=== PATIENT | female | born 1950 | race Caucasian/White ===

== ENCOUNTER 2016-06-05 18:44 | Emergency (ER) | payer MEDICARE, BC ==
[2016-06-05 19:02] VITALS: BP 136/76
[2016-06-05] MEDS ORDERED: Ciprofloxacin TAB* 500 MG PO ONE (19:20)
[2016-06-05] MEDS ORDERED: Phenazopyridine TAB* 100 MG PO ONE (19:21)
--- NOTE | 2016-06-05 19:52 | UC ---
Complaint Female HPI - HPI Summary HPI Summary: ONE WEEK OF FREQUNCY URGENCY AND PAIN WITH URINATION. WORSE SINCE MONDAY, WAS GOING TO WAIT TO SEE PCP, BUT COULD NOT WAIT ANY LONGER. BLOOD IN URINE SINCE MONDAY (3 DAYS AGO). NO FEVER. NO BACK PAIN. NO ABDOMINAL PAIN. - History Of Current Complaint Chief Complaint: UCGU Stated Complaint: FREQ URINATING,BLOOD Time Seen by Provider: 06/05/16 18:45 Hx Obtained From: Patient Onset/Duration: Gradual Onset, Lasting Days, Worse Since - THREE DAYS Timing: Lasting Days Severity Initially: Mild Severity Currently: Moderate Character: Dull, Burning Aggravating Factor(s): Urination Associated Signs And Symptoms: Negative: Fever, Back Pain, Nausea, Vomiting(# Of Episodes =) - Risk Factors Ectopic Risk Factor: Negative - Allergies/Home Medications Allergies/Adverse Reactions: Allergies Allergy/AdvReac Type Severity Reaction Status Date / Time Amoxicillin Allergy Unknown Verified 06/05/16 19:02 Reaction Details Ampicillin Allergy THRUSH, Verified 06/05/16 19:02 YEAST INFECTIONS Cephalexin [From Keflex] Allergy THRUSH, Verified 06/05/16 19:02 YEAST INFECTIONS BANDAIDS Allergy Severe Rash Uncoded 06/05/16 19:02 ENVIRONMENTAL/SEASONAL Allergy CONGESTION, Uncoded 06/05/16 19:02 SNEEZING PMH/Surg Hx/FS Hx/Imm Hx Previously Healthy: Yes Endocrine History Of: Reports: Thyroid Disease - HYPOTHYROIDISM Denies: Diabetes - She is on metformin for diabetes? weight gain?, Hyperthyroidism, Hypothyroidism, Dyslipidemia Cardiovascular History Of: Reports: Hypertension - CONTROL WITH MEDS Denies: Myocardial Infarction, Congestive Heart Failure Respiratory History Of: Reports: COPD - past smoker., Asthma - HX OF ASTHMA - NO INHALER, Bronchitis - HX OF GI/ History Of: Reports: Gastroesophageal Reflux Denies: Renal Disease Neurological History Of: Reports: Migraine - ONCE A WEEK Denies: Seizures Psychological History Of: Reports: Anxiety - CONTROL WITH MEDS, Bipolar Disorder Comment Only: Depression - BIPOLAR Cancer History Of: Denies: Lung Cancer, Colorectal Cancer, Breast Cancer, Prostate Cancer, Cervical Cancer - Surgical History Surgical History: Yes Surgery Procedure, Year, and Place: 2005 APPENDECTOMY, [facility] [place]. 2005 LAPAROSCOPIC CHOLECYSTECTOMY, [facility] [place]. 1974 D&C, WITH LAPAROSCOPIC TUBAL, [facility] [place]. 1966 LEFT BREAST TUMOR REMOVAL, [facility] [place]. CYSTOSCOPY, [facility] [place]. 2012 LEFT CATARACT EXTRACTION WITH IOL IMPLANT, [facility]. COLONOSCOPY X 2, [facility] - Family History Known Family History: Positive: Unknown Negative: Renal Disease Family History: multiple disease but she is unsure of what at this time - Social History Occupation: Retired Lives: With Family Alcohol Use: Rare Substance Use Type: None Smoking Status (MU): Former Smoker Type: Cigarettes Amount Used/How Often: 1 PPD Length of Time of Smoking/Using Tobacco: 30 YEARS ON AND OFF Have You Smoked in the Last Year: No When Did the Patient Quit Smoking/Using Tobacco: 02/20/2006 - Immunization History Most Recent Influenza Vaccination: 2009 Most Recent Tetanus Shot: does not know Most Recent Pneumonia Vaccination: 11/2009 Review of Systems Constitutional: Negative Skin: Negative Eyes: Negative ENT: Negative Respiratory: Negative Cardiovascular: Negative Gastrointestinal: Negative Genitourinary: Dysuria, Hematuria, Frequency, Urgency Motor: Negative Neurovascular: Negative Musculoskeletal: Negative Neurological: Negative Psychological: Negative All Other Systems Reviewed And Are Negative: Yes Physical Exam Triage Information Reviewed: Yes Appearance: Well-Appearing, No Pain Distress, Well-Nourished Vital Signs: Initial Vital Signs Temp 98.4 F 06/05/16 18:50 Pulse 71 06/05/16 18:50 Resp 18 06/05/16 18:50 BP 136/76 06/05/16 18:50 Pulse Ox 99 06/05/16 18:50 Vital Signs Reviewed: Yes Eye Exam: Normal ENT Exam: Normal ENT: Positive: Normal ENT inspection, Hearing grossly normal, Pharynx normal, TMs normal Dental Exam: Normal Neck exam: Normal Neck: Positive: Supple, Nontender Respiratory Exam: Normal Respiratory: Positive: Chest non-tender, Lungs clear, Normal breath sounds, No respiratory distress, No accessory muscle use Cardiovascular Exam: Normal Cardiovascular: Positive: RRR, No Murmur, Pulses Normal Abdominal Exam: Normal Abdomen Description: Positive: Nontender, No Organomegaly. Negative: CVA Tenderness (R), CVA Tenderness (L) Musculoskeletal Exam: Normal Neurological Exam: Normal Psychological Exam: Normal Skin Exam: Normal Complaint Female Dx - Differential Dx/Diagnosis Differential Diagnosis/HQI/PQRI: Cervicitis, Urinary Tract Infection Provider Diagnoses: URINARY TRACT INFECTION Discharge - Discharge Plan Condition: Stable Disposition: HOME Prescriptions: Ciprofloxacin HCl [Cipro 500 MG TAB] 500 mg PO BID #10 tab Phenazopyridine TAB* [Pyridium 100 mg TAB*] 100 mg PO TID PRN #15 tab PRN Reason: Pain Patient Education Materials: Urinary Tract Infection in Women (ED) Referrals: Kaylyn Silver MD [Primary Care Provider] -
== END 2016-06-05 19:37 | disposition home or self-care (01) ==
LOC: UCEAST 18:44
DX: N39.0 Urinary tract infection, site not specified (principal); R31.9 Hematuria, unspecified; E03.9 Hypothyroidism, unspecified; I10 Essential (primary) hypertension; J44.9 Chronic obstructive pulmonary disease, unspecified; K21.9 Gastro-esophageal reflux disease without esophagitis; G43.909 Migraine, unspecified, not intractable, without status migrainosus; Z88.1 Allergy status to other antibiotic agents; F41.9 Anxiety disorder, unspecified; Z87.891 Personal history of nicotine dependence
CPT/HCPCS: 81003; 87077; 87086; 87186; 99212; A9270-GY; G0463

== ENCOUNTER 2016-09-17 18:48 | Emergency (ER) | payer MEDICARE, BC ==
[2016-09-17 18:56] VITALS: BP 137/60
[2016-09-17] MEDS ORDERED: Sulfamethox/Trimethoprim DS 800/160* TAB PO ONE (19:22)
[2016-09-17] MEDS ORDERED: Phenazopyridine TAB* 100 MG PO ONE (19:25)
--- NOTE | 2016-09-17 19:45 | UC ---
Complaint Female HPI - HPI Summary HPI Summary: TWO DAYS OF FREQUENCY AND DISCOMFORT WITH URINATION. NO BACK PAIN. NO ABDOMINAL PAIN. - History Of Current Complaint Chief Complaint: UCGU Stated Complaint: POSS UTI,DISCHARGE Time Seen by Provider: 09/17/16 18:51 Hx Obtained From: Patient Onset/Duration: Gradual Onset, Lasting Days, Still Present Timing: Intermittent Severity Initially: Moderate Severity Currently: Moderate Pain Intensity: 7 Pain Scale Used: 0-10 Numeric Character: Dull Aggravating Factor(s): Urination Associated Signs And Symptoms: Negative: Fever, Back Pain, Vaginal Bleeding/ Discharge, Vaginal Discharge, Nausea, Vomiting(# Of Episodes =) - Risk Factors Ectopic Risk Factor: Negative Ovarian Torsion Risk Factor: Negative - Allergies/Home Medications Allergies/Adverse Reactions: Allergies Allergy/AdvReac Type Severity Reaction Status Date / Time Amoxicillin Allergy Unknown Verified 06/05/16 19:02 Reaction Details Ampicillin Allergy THRUSH, Verified 06/05/16 19:02 YEAST INFECTIONS Cephalexin [From Keflex] Allergy THRUSH, Verified 06/05/16 19:02 YEAST INFECTIONS BANDAIDS Allergy Severe Rash Uncoded 06/05/16 19:02 ENVIRONMENTAL/SEASONAL Allergy CONGESTION, Uncoded 06/05/16 19:02 SNEEZING Home Medications: Home Medications Cholecalciferol [Vitamin D] 1,000 unit PO 09/17/16 [History] [id number]-[id number]-Bj (Otic) [Antibiotic Ear] 1 umberto OT 09/17/16 [History] PMH/Surg Hx/FS Hx/Imm Hx Previously Healthy: Yes - Surgical History Surgical History: Yes Surgery Procedure, Year, and Place: [place] [facility] [place] LAPAROSCOPIC [place] [facility] [place]. 1973 D&C, WITH LAPAROSCOPIC [place]UBAL, [facility] [place] LEFT BREAST TUM[place] [facility] [place], [facility] [place]. 2012 LEFT CATARACT EXTRACTION WITH IOL IMPLANT, [facility] [place] 2[place] [facility] [place] - Family History Known Family History: Positive: Unknown Negative: Renal Disease Family History: multiple disease but she is unsure of what at this time - Social History Occupation: Retired Lives: With Family Alcohol Use: Rare Substance Use Type: None Smoking Status (MU): Former Smoker Type: Cigarettes Amount Used/How Often: 1 PPD Length of Time of Smoking/Using Tobacco: 30 YEARS ON AND OFF Have You Smoked in the Last Year: No When Did the Patient Quit Smoking/Using Tobacco: 02/20/2006 - Immunization History Most Recent Influenza Vaccination: 2009 Most Recent Tetanus Shot: does not know Most Recent Pneumonia Vaccination: 11/2009 Review of Systems Constitutional: Negative Skin: Negative Eyes: Negative ENT: Negative Respiratory: Negative Cardiovascular: Negative Gastrointestinal: Negative Genitourinary: Dysuria, Frequency, Urgency Neurovascular: Negative Musculoskeletal: Negative Neurological: Negative Psychological: Negative All Other Systems Reviewed And Are Negative: Yes Physical Exam Triage Information Reviewed: Yes Appearance: Well-Appearing, No Pain Distress, Well-Nourished Vital Signs: Initial Vital Signs Temp 97.5 F 09/17/16 18:50 Pulse 74 09/17/16 18:50 Resp 18 09/17/16 18:50 BP 137/60 09/17/16 18:50 Pulse Ox 100 09/17/16 18:50 Vital Signs Reviewed: Yes Eye Exam: Normal ENT Exam: Normal Dental Exam: Normal Neck exam: Normal Respiratory Exam: Normal Respiratory: Positive: Chest non-tender, Lungs clear, Normal breath sounds, No respiratory distress, No accessory muscle use Cardiovascular Exam: Normal Cardiovascular: Positive: RRR, No Murmur, Pulses Normal Abdominal Exam: Normal Abdomen Description: Positive: Nontender, No Organomegaly. Negative: CVA Tenderness (R), CVA Tenderness (L) Musculoskeletal Exam: Normal Musculoskeletal: Positive: Strength Intact, ROM Intact Neurological Exam: Normal Psychological Exam: Normal Skin Exam: Normal Complaint Female Dx - Differential Dx/Diagnosis Differential Diagnosis/HQI/PQRI: Ureteral Stone, Urinary Tract Infection Provider Diagnoses: URINARY TRACT INFECTION Discharge - Discharge Plan Condition: Stable Disposition: HOME Prescriptions: Fluconazole [Diflucan 150 MG (NF)] 150 mg PO ONCE #1 tab Phenazopyridine TAB* [Pyridium 100 mg TAB*] 100 mg PO TID PRN #12 tab PRN Reason: Pain Sulfamethox/Trimethoprim DS* [Bactrim DS 800/160 TAB*] 1 tab PO BID #10 tab Patient Education Materials: Urinary Tract Infection in Women (ED) Referrals: Kaylyn Silver MD [Primary Care Provider] -
== END 2016-09-17 19:39 | disposition home or self-care (01) ==
LOC: UCEAST 18:48
DX: N39.0 Urinary tract infection, site not specified (principal); Z87.891 Personal history of nicotine dependence
CPT/HCPCS: 81003; 87077; 87086; 87186; 99212; A9270-GY; G0463

== ENCOUNTER 2017-01-04 13:19 | Emergency (ER) | payer MEDICARE, BC ==
[2017-01-04 14:32] LABS: Hematocrit 40 % (35-47); Hemoglobin 13.2 g/dl (12.0-16.0); Mean Corpuscular HGB Conc 34 g/dl (31-36); Mean Corpuscular Hemoglobin 31 pg (27-31); Mean Corpuscular Volume 93 fL (80-97); Mean Platelet Volume 7 um3 (7.4-10.4); Red Blood Count 4.24 10^6/ul (4.0-5.4); Red Cell Distribution Width 15 % (10.5-15); White Blood Count 7.3 10^3/ul (3.5-10.8)
[2017-01-04 14:37] LABS: Add Diff/Slide Review? Slide Review Added; Comments Flag Yes
--- NOTE | 2017-01-04 14:39 | RAD ---
HISTORY: Syncope, ataxia COMPARISONS: MRI of the brain dated April 02, 2009 TECHNIQUE: Multiple contiguous axial CT scans were obtained of the head without intravenous contrast. FINDINGS: HEMORRHAGE/INFARCT: There is no hemorrhage or acute infarct. MASSES/SHIFT: There is no mass or shift. EXTRA-AXIAL SPACES: There are no extra-axial fluid collections. SULCI AND VENTRICLES: The sulci and ventricles are normal in size and position for the patient's stated age. CEREBRUM: There are no focal parenchymal abnormalities. BRAINSTEM: There are no focal parenchymal abnormalities. CEREBELLUM: There are no focal parenchymal abnormalities. VESSELS: The vessels are grossly normal. PARANASAL SINUSES: The paranasal sinuses are clear. ORBITS: The orbits are unremarkable. BONES AND SOFT TISSUE: No bone or soft tissue abnormalities are noted. OTHER: None IMPRESSION: NO ACUTE INTRACRANIAL PATHOLOGY.
[2017-01-04 14:48] LABS: ALT 7 U/L (7-52); AST 16 U/L (13-39); Albumin 4.3 g/dL (3.2-5.2); Alkaline Phosphatase 59 U/L (34-104); Anion Gap 10 mmol/L (2-11); BUN/Creatinine Ratio 20.2 (8-20); Blood Urea Nitrogen 18 mg/dL (6-24); CO2 Carbon Dioxide 27 mmol/L (22-32); Calcium 9.5 mg/dL (8.6-10.3); Chloride 95 mmol/L (101-111); EGFR African American 81.1 (>60); EGFR Non-African American 63.1 (>60); Globulin 2.6 g/dL (2-4); Glucose 78 mg/dL (70-100); Potassium 3.7 mmol/L (3.5-5.0); Sodium 132 mmol/L (133-145); Total Protein 6.9 g/dL (6.4-8.9)
[2017-01-04 15:04] LABS: Acetaminophen < 15 mcg/mL; Alcohol < 10 mg/dL (<10); Salicylate < 2.50 mg/dL (<30)
--- NOTE | 2017-01-04 15:06 | RAD ---
INDICATION: Chest pain. COMPARISON: Comparison is made with a prior chest x-ray study from September 23, 2013. TECHNIQUE: Dual-energy PA and lateral views of the chest were obtained. FINDINGS: The heart is within normal limits in size. Mediastinal and hilar contours appear within normal limits. The lungs are underinflated and clear. No pleural effusion or pneumothorax is seen. IMPRESSION: NO EVIDENCE FOR ACTIVE CARDIOPULMONARY DISEASE.
[2017-01-04 15:18] LABS: TSH (Thyroid Stimulating Horm) 0.26 mcIU/mL (0.34-5.60)
--- NOTE | 2017-01-04 16:54 | RAD ---
Indication: Dizziness. Difficulty speaking. Suggestion of visual hallucinations. Comparison: January 04, 2017 CT. April 02, 2009 MRI Technique: Pin digital Fidelity 1.5 Annalisa [id number] with GEM suite. MRI brain without contrast. Report: Diffusion series is negative for acute or subacute ischemia. Susceptibility series is negative for stigmata of hemosiderin deposition to indicate previous hemorrhage. 3 mm chronic lacunar infarct noted at the LEFT superior cerebellar hemisphere. Small burden of small T2 FLAIR hyperintensities within the periventricular and subcortical white matter of the cerebral hemispheres. No intra or extra-axial fluid collection or mass effect. Preserved major intracranial flow-voids. Unremarkable orbital contents. No suspicious calvarial or skull base lesion evident. Clear paranasal sinuses and mastoid air spaces. Unremarkable scalp. IMPRESSION: 1. Stigmata of mild chronic small vessel ischemic disease. Chronic 3 mm lacunar infarct at the LEFT cerebellum unchanged from the 2010 exam. 2. No acute intracranial process evident.
[2017-01-04 17:58] LABS: Urine Bacteria Absent (Absent); Urine Bilirubin Negative (Negative); Urine Glucose Negative (Negative); Urine Nitrite Negative (Negative)
[2017-01-04 18:10] LABS: Benzodiazepine Urine Screen None Detected (None Detect)
--- NOTE | 2017-01-04 21:47 | ED ---
Taylor Armendariz Nilda, scribed for Haile Michelle MD on 01/04/17 at 1405 . Neurological HPI - HPI Summary HPI Summary: This patient is a 66 year old F BIBA to [facility] accompanied by sister with a chief complaint of constant unsteadiness since this morning. Last night, patient experienced dizziness and seeing bugs crawling on her legs. Symptoms aggravated and alleviated by nothing. Patient reports word finding (past week), tremors in bilat UE, and hand pain. Patient denies unilateral weakness. For the past few months, patient has been on Amitriptyline for insomnia, and recently increased dosage a couple weeks ago. She is also on Depakote for bipolar disorder. - History of Current Complaint Chief Complaint: EDDizziness Stated Complaint: WEAKNESS Time Seen by Provider: 01/04/17 13:41 Hx Obtained From: Patient Onset/Duration: Sudden Onset, Started days ago, Still Present Timing: Constant Current Severity: Moderate Neurological Deficit Location: Generalized Pain Intensity: 0 Pain Scale Used: 0-10 Numeric Character: Other: - unsteady Aggravating: Nothing Alleviating: Nothing Associated Signs and Symptoms: Positive: Nothing - dizziness and seeing bugs crawling on her legs, word finding (past week), tremors in bilat UE, and hand pain. Patient denies unilateral weakness. - Allergy/Home Medications Allergies/Adverse Reactions: Allergies Allergy/AdvReac Type Severity Reaction Status Date / Time Amoxicillin Allergy Unknown Verified 06/05/16 19:02 Reaction Details Ampicillin Allergy THRUSH, Verified 06/05/16 19:02 YEAST INFECTIONS Cephalexin [From Keflex] Allergy THRUSH, Verified 06/05/16 19:02 YEAST INFECTIONS BANDAIDS Allergy Severe Rash Uncoded 06/05/16 19:02 ENVIRONMENTAL/SEASONAL Allergy CONGESTION, Uncoded 06/05/16 19:02 SNEEZING Home Medications: Home Medications Acyclovir OINT 5%(NF) [Zovirax Oint 5%(NF)] 1 applic TOPICAL QID 01/04/17 [ History Confirmed 01/04/17] Amitriptyline TAB* [Elavil TAB*] 20 mg PO BEDTIME 01/04/17 [History Confirmed ] Carbidopa/Levodop 25/100 MG(*) [Sinemet 25/100 TAB(*)] 1.5 tab PO QAM 01/04/17 [ History Confirmed 01/04/17] Carbidopa/Levodop 25/100 MG(*) [Sinemet 25/100 TAB(*)] 2 tab PO BID 01/04/17 [ History Confirmed 01/04/17] Clotrimazole/Betamethasone* [Lotrisone Cream*] 1 applic TOPICAL BID 01/04/17 [ History Confirmed 01/04/17] Esomeprazole(NF) [NexIUM(NF)] 40 mg PO DAILY 01/04/17 [History Confirmed ] Estradiol VAGINAL TAB(NF) [Vagifem] 10 mcg VAGINAL .THREE TIMES WEEKLY PRN 01/04 [History Confirmed 01/04/17] Lamotrigine XR (NF) [Lamictal XR (NF)] 100 mg PO DAILY 01/04/17 [History Confirmed 01/04/17] Levothyroxine TAB* [Synthroid TAB*] 137 mcg PO DAILY 01/04/17 [History Confirmed 01/04/17] Melatonin (NF) 5 tab PO BEDTIME 01/04/17 [History Confirmed 01/04/17] Metformin ER (NF) 500 mg PO BID 01/04/17 [History Confirmed 01/04/17] Metoprolol Succinate XL TAB* [Toprol XL TAB*] 50 mg PO BID 01/04/17 [History Confirmed 01/04/17] Nicotine GUM* 4 mg PO Q2H PRN 01/04/17 [History Confirmed 01/04/17] Psyllium [Metamucil] 1,050 mg PO BEDTIME 01/04/17 [History Confirmed 01/04/17] ValACYclovir (*) [Valtrex 500 mg (*)] 500 mg PO DAILY PRN 01/04/17 [History Confirmed 01/04/17] Verapamil PM(NF) [Verelan PM(NF)] 200 mg PO DAILY 01/04/17 [History Confirmed ] PMH/Surg Hx/FS Hx/Imm Hx Endocrine/Hematology History: Reports: Hx Thyroid Disease - HYPOTHYROIDISM Denies: Hx Diabetes - She is on metformin for diabetes? weight gain? Cardiovascular History: Reports: Hx Angina, Hx Hypertension - CONTROL WITH MEDS , Other Cardiovascular Problems/Disorders - SEES [facility], BUT NOT ON REGULAR BASIS Denies: Hx Congestive Heart Failure, Hx Coronary Artery Disease, Hx Hypercholesterolemia, Hx Myocardial Infarction, Hx Valvular Heart Disease Respiratory History: Reports: Hx Asthma - HX OF ASTHMA - NO INHALER, Hx Chronic Obstructive Pulmonary Disease (COPD) - past smoker., Other Respiratory Problems/ Disorders - COPD Denies: Hx Lung Cancer GI History: Reports: Hx Gastroesophageal Reflux Disease - CONTROL WITH MEDS, Other GI Disorders - TAKING METFORMIN DUE TO THE DEPAKOTE AND WEIGHT GAIN History: Reports: Other Problems/Disorders - spastic bladder Denies: Hx Renal Disease Musculoskeletal History: Reports: Hx Arthritis, Hx Osteoporosis, Hx Tendonitis - CHRONIC IN MARA HANDS Sensory History: Reports: Hx Cataracts, Hx Contacts or Glasses - GLASSES, Hx Vision Problem - bifocals Denies: Hx Hearing Aid Opthamlomology History: Reports: Hx Cataracts, Hx Contacts or Glasses - GLASSES , Hx Vision Problem - bifocals Neurological History: Reports: Hx Migraine - ONCE A WEEK, Hx Nerve Disease - PARKINSON DISEASE, Other Neuro Impairments/Disorders - HX OF DIZZINESS R/T MEDICATIONS Denies: Hx Seizures Psychiatric History: Reports: Hx Anxiety - CONTROL WITH MEDS, Hx Post Traumatic Stress Disorder, Hx Bipolar Disorder Comment Only: Hx Depression - BIPOLAR - Cancer History Hx Chemotherapy: No Hx Radiation Therapy: No - Surgical History Surgery Procedure, Year, and Place: 2005 [place]OMY, [facility] [place]. 2004 LAPAROSCOPIC CHOLECYSTECTOMY, [facility] [place]. 1973 D&C, WITH LAPAROSCOPIC TUBAL, [facility] [place]. 1966 LEFT BREAST TUMOR REMOVAL, [facility] [place]. [place]STOSCOPY, [facility] [place]. 2012 LEFT CATARACT EXTRACTION WITH IOL IMPLANT, [facility] [place]. COLONOSCOPY X 2, [facility] [place] Hx Anesthesia Reactions: No Infectious Disease History: No Infectious Disease History: Denies: Hx Clostridium Difficile, Hx Hepatitis, Hx Human Immunodeficiency Virus (HIV), Hx of Known/Suspected MRSA, Hx Shingles, Hx Tuberculosis, Hx Known/ Suspected VRE, History Other Infectious Disease, Traveled Outside the [place] in Last 30 Days - Family History Known Family History: Positive: Cardiac Disease, Diabetes, Blood Disorder Negative: Renal Disease Family History: multiple disease but she is unsure of what at this time - Social History Occupation: Retired Lives: At [facility] Alcohol Use: Rare Substance Use Type: Reports: None Smoking Status (MU): Former Smoker Type: Cigarettes Amount Used/How Often: 1 PPD Length of Time of Smoking/Using Tobacco: 30 YEARS ON AND OFF Have You Smoked in the Last Year: No Review of Systems Positive: Other - tremors in bilat UE, hand pain Neurological: Other - unsteadiness, word finding, seeing bugs crawling on legs, dizziness; negative unilateral weakness All Other Systems Reviewed And Are Negative: Yes Physical Exam Triage Information Reviewed: Yes Vital Signs On Initial Exam: Initial Vitals Temp Pulse Resp BP Pulse Ox 97.9 F 83 14 133/71 97 01/04/17 13:26 01/04/17 13:26 01/04/17 13:26 01/04/17 13:26 01/04/17 13:26 Vital Signs Reviewed: Yes Appearance: Positive: Well-Appearing, No Pain Distress Skin: Positive: Skin Color Reflects Adequate Perfusion Head/Face: Positive: Normal Head/Face Inspection Eyes: Positive: EOMI ENT: Positive: Normal ENT inspection Neck: Positive: Nontender Respiratory/Lung Sounds: Positive: Clear to Auscultation, Breath Sounds Present Cardiovascular: Positive: RRR. Negative: Murmur Abdomen Description: Positive: Nontender Musculoskeletal: Positive: Strength/ROM Intact Neurological: Positive: Sensory/Motor Intact, Alert, Oriented to Person Place, Time, CN Intact II-III Psychiatric: Positive: Normal - [place] Coma Scale Best Eye Response: 4 - Spontaneous Best Motor Response: 6 - Obeys Commands Best Verbal Response: 5 - Oriented Coma Scale Total: 15 Diagnostics - Vital Signs Vital Signs Temp Pulse Resp BP Pulse Ox 01/04/17 13:26 97.9 F 83 14 133/71 97 - Laboratory Result Diagrams: 01/04/17 14:15 01/04/17 14:15 Lab Statement: Any lab studies that have been ordered have been reviewed, and results considered in the medical decision making process. - Radiology CXR Radiology Interpretation Completed By: Radiologist - CXR reveals no evidence for active cardiopulmonary disease. ED physician has reviewed this radiology report and agrees. Brain MRI Radiology Interpretation Completed By: Radiologist - 1. Stigmata of mild chronic small vessel ischemic disease. Chronic 3 mm lacunar infarct at the LEFT cerebellum unchanged from the 2010 exam. 2. No acute intracranial process evident. ED physcician has reviewed this report and agrees. - CT Brain CT Interpretation Completed By: Radiologist - CT Brain reveals no acute intracranial pathology. ED physician has reviewed this radiology report and agrees. - EKG 1351 Cardiac Rate: NL EKG Rhythm: Sinus Rhythm - 77 bpm EKG Interpretation: nl [place] and QRS EKG Comparison: No Significant Change Re-Evaluation - Re-Evaluation First Eval Re-Evaluation Time: 18:18 Change: Improved Comment: The patient walked to the bathroom and back to her room, about 100 feet with a steady gait, and not being off balance. Course/Dx - Course Assessment/Plan: This patient is a 66 year old F BIBA to [facility] accompanied by sister with a chief complaint of constant unsteadiness since this morning. Last night, patient experienced dizziness and seeing bugs crawling on her legs. Symptoms aggravated and alleviated by nothing. Patient reports word finding ( past week), tremors in bilat UE, and hand pain. Patient denies unilateral weakness. For the past few months, patient has been on Amitriptyline for insomnia, and recently increased dosage a couple weeks ago. She is also on Depakote for bipolar disorder. Pending EKG, CXR, CT Brain, and labs. EKG reveals NSR, 77 bpm, nl [place] and QRS, no acute changes. CXR, per radiologist, reveals NAD. CT Brain, per radiologist, reveals no acute intracranial pathology. ED physician has reviewed these radiology reports and agrees. Pending MRI brain, UA, and drug screen. Brain MRI, per radiology, reveals 1. Stigmata of mild chronic small vessel ischemic disease. Chronic 3 mm lacunar infarct at. the LEFT cerebellum unchanged from the 2010 exam. 2. No acute intracranial process evident. The patient is ambulatory with normal gait here in the ER, she has no orthostatic changes on vitals, she has a normal MRI. Mental health to see for further eval. - Diagnoses Provider Diagnoses: Psychosis, Dizziness Discharge - Discharge Plan Condition: Good Disposition: OTHER Discharge Disposition Comment: sign out to Dr Willett at 2200 awaiting [facility] and dispo Referrals: Kaylyn Silver MD [Primary Care Provider] - The documentation as recorded by the Taylor morrow Nilda accurately reflects the service I personally performed and the decisions made by me, Haile Michelle MD.
[2017-01-05 02:40] VITALS: BP 80/59
--- NOTE | 2017-01-05 14:22 | ED ---
Kieran Armendariz Alfonso, scribed for Judy Willett MD on 01/05/17 at 0242 . Progress - Progress Note Progress Note: This patient was signed out from Dr. Michelle after extensive evaluation for dizziness including brain MRI that was unremarkable, pending disposition, awaiting [facility]. The patients condition is deemed, per Dr. Eubanks (psychiatrist, per Kameron, psychiatric appetizer packer), stable and she will be discharged to home with Dx of bipolar disorder, dizziness. - Consult/PCP Time Called: 23:53 Re-Evaluation - Re-Evaluation First Eval Re-Evaluation Time: 18:18 Change: Improved Comment: The patient walked to the bathroom and back to her room, about 100 feet with a steady gait, and not being off balance. Course/Dx - Diagnoses Provider Diagnoses: Bipolar disorder The documentation as recorded by the Kieran morrow Alfonso accurately reflects the service I personally performed and the decisions made by , Judy Willett MD.
== END 2017-01-05 03:13 | disposition home or self-care (01) ==
LOC: ED 13:19
DX: F29 Unspecified psychosis not due to a substance or known physiological condition (principal); F31.9 Bipolar disorder, unspecified; R42 Dizziness and giddiness
CPT/HCPCS: 36415; 70450; 70551; 71020; 80053; 80164; 80307; 80320; 80329; 81003; 81015; 84443; 84484; 85025; 87086; 93005; 99285; G0480

== ENCOUNTER 2017-07-14 18:21 | Emergency (ER) | payer MEDICARE, BC ==
--- OUTSIDE RECORDS SUMMARY | 2017-07-14 18:59 | XMS REPORT ---
:1950 External Reference #:[id number] Author Organization [facility] Address [address] [address] Phone [phone] Care Team Providers Name Role Phone Kaylyn Shannon MD Primary Care Physician Unavailable Payers Type Date Identification Numbers Payment Provider Subscriber Medicare Primary Effective: Policy Number: Medicare Leslie Ignacio 2013 [id number] PayID: [id number] [address] [place] [address] Med[employer] Part B Effective: 2012 Policy Number: BS Facets Leslie Ignacio [id number] PayID: [id number] [address] [address] [place] [address] Problems Date Description Provider Status Onset: 09/23/2014 Parkinson's disease Janice Kinney M.D. Active Onset: 09/23/2014 Moderate depression Janice Kinney M.D. Active Onset: 09/23/2014 Essential tremor Janice Kinney M.D. Active Onset: 03/12/2015 Daytime somnolence Janice Kinney M.D. Active Onset: 03/09/2016 Dizziness Janice Kinney M.D. Active Onset: 10/20/2016 Insomnia Janice Kinney M.D. Active Onset: 10/20/2016 Joint pain Janice Kinney M.D. Active Onset: 07/07/2017 REM sleep behavior disorder Kelvin Flores M.D. Active Onset: 07/07/2017 Major depressive disorder, single Kelvin Flores M.D. Active episode, unspecified Onset: 07/07/2017 Dysphagia Kelvin Flores M.D. Active Onset: 07/07/2017 Abnormal gait Kelvin Flores M.D. Active Social History Type Date Description Comments ETOH Use Rarely consumes alcohol Smoking Patient is a former smoker quit early 1 ppd on/off for 30 yrs Allergies, Adverse Reactions, Alerts Date Description Reaction Status Severity Comments 08/24/2012 NKDA active Medications Medication Date Status Form Strength Qnty SIG Indications Ordering Provider Vitamin D-3 10/20 Active Capsules 1000Unit 1 by mouth . every day Leonor Kinney Primidone 03/26 Active Tablets 50mg 270ta Take Three bs Tablets By Gregoria, Mouth Every M.D. Night as Directed Carbidopa-Levodopa 10/29 Active Tablets 25-100mg 585ta take 12/04. bs tab in in Gregoria the M.D. morning, 2.tabs at lunch, 2 tabs at dinner. Nexium Active Capsules 40mg 30cap 1 po qd / DR s Metoprolol Active Tablets 25mg 360ta 2 po bid Janice M. Succinate ER / ER 24HR bs Leonor Kinney Hydrochlorothiazid Active Capsules 12.5mg 90cap 1 po qd Unknown s Verapamil HCL ER Active Caps ER 200mg 90cap 1 po qd 24HR s Levoxyl Active Tablets 137mcg 90tab 1 po qd s Ibuprofen Active Tablets 600mg 120ta 1 po q4h Unknown / bs prn alternating with Tylenol Depakote ER Active Tablets 500mg 60tab 2 tabs qpm / ER 24HR s Imitrex Active Solution 20mg/Act 2 sprays in 24 hours as needed for migraine Nicotine Mini Active Lozenges 4mg 5 PO qd Restasis Active Emulsion 0.05% 1 drop in / each eye bid Valtrex Active Tablets 500mg 1 by mouth every day Zovirax Active Ointment 5% apply to Unknown /0000 lesions qid Oxybutynin 00 Active Tablets 15mg 1 by mouth Unknown Chloride ER /0000 ER 24HR every day Potassium Chloride Active Tablets 10Meq Take two Unknown ER /0000 ER One By Mouth Twice A Day Multivitamin Adult Active Tablets 1 by mouth Unknown /0000 every day Lamictal Active Tablets 25mg 3 tabs by Unknown /0000 mouth at night Eucerin Eczema Active Cream 1% apply to Unknown Relief /0000 affected areas as needed Lactaid 10/20 Hx Tablets 3000Unit 90tab 1-2 tab w/ s dairy as Gregoria, - needed M.D. 07/06 Parcopa 10/20 Hx Tablets 25-100mg 90tab 1 tab G20 Dispers s sublingual Gregoria, - first thing M.D. 02/08 morning Amitriptyline HCL 10/20 Hx Tablets 10mg 180ta take G47.00 bs one-two Gregoria, - tablets by M.D. 02/08 mouth at bedtime as directed. Parcopa 09/23 Hx Tablets 25-100mg 90tab 1po qam G20 Dispers s Gregoria - M.D. 07/28 Parcopa 04/17 Hx Tablets 25-100mg 90tab 1 tab by 332.0 Dispers s mouth every Gregoria, - in the M.D. 09/23 Metamucil 03/26 Hx Capsules 0.52gm 1 po daily Vish Kinney M.DColby 03/23 Senna 03/26 Hx Capsules 8.6mg 60cap 1-2 tabs po s prn Vish Kinney M.DColby 07/28 Klor-Con 10 00 Hx Tablets 10Meq 30tab 3 tabs po Unknown /0000 ER s alternating - with 2 tabs / po q Oxybutynin Hx Tablets 10mg 30tab 1 po qd Unknown Chloride ER /0000 ER 24HR s - 03/09 Metformin HCL ER Hx Tablets 500mg 30tab 1 PO bid Unknown /0000 ER 24HR s - 06/15 Imitrex Hx Tablets 25mg 18tab 1 po prn. Unknown /0000 s June repeat - x1 in 24h 07/28 Vicodin Hx Tablets 5-500mg 53tab 1 tab po q Unknown /0000 s 4h prn - 03/08 Carbidopa/Levodopa Hx Tablets 25-100mg 540ta 1- 1 1/2 Janice M. /0000 bs tabs by Stackman, - mouth 4 M.D. 10/29 times a day /2013 as directed Lamictal Hx Tablets 25mg 120ta 3 tabs po Unknown /0000 bs qpm - 03/09 Depakote ER Hx Tablets 250mg 1 tab po Unknown /0000 ER 24HR qpm - 07/28 Ambien Hx Tablets 5mg 10tab 1-2 tabs po Unknown /0000 s qhs prn - 03/08 Ativan Hx Tablets 0.5mg 20tab 1 po qd prn Unknown /0000 s - 03/08 Colace Hx Capsules 100mg 60cap 2 PO qd Unknown /0000 s - 03/08 Metamucil Hx Powder 28.3% 1Can 2 tsp to Unknown /0000 2tbs by - mouth daily 03/26 prn Miralax Hx Packet [id number] 1Mon 17 gm qd Unknown /0000 prn - 03/26 Pepcid ac Hx Tablets 10mg 60tab 1 po daily Unknown /0000 s prn - 07/28 Multivitamins Hx Tablets 90tab 1 po qd Unknown /0000 s - 09/22 Premarin Hx Cream 0.625mg/G 60gm use1 Unknown /0000 M applicator - intavaginal 10/04 2x per week /2013 Melatonin Maximum Hx Tablets 5mg 1 tab po Unknown Strength /0000 qhs - 09/22 Probiotic Hx Capsules 14cap 5 po qd Unknown /0000 s - 03/08 Vitamin E Hx Capsules 400Unit 30cap 4 po qd Unknown /0000 s - 09/22 Metamucil 00 Hx Capsules 0.52gm 2 capsules Unknown /0000 PO QHS - 07/06 Vagifem Hx Tablets 10mcg by way of Unknown /0000 vagina - three times 06/15 a week week (with applicator) Acyclovir Hx Tablets 400mg 1 by mouth Unknown /0000 daily - 07/28 Sulfamethoxazole-T Hx Tablets 400-80mg one tab po Unknown rimethoprim /0000 bid prn - 07/28 Clotrimazole Hx Cream 1% apply to Unknown /0000 affected - area bid 03/08 Bactrim Hx Tablets 400-80mg 1 tab by Unknown /0000 mouth once - a day 03/08 Multivitamins Hx Capsules 1 by mouth Unknown /0000 every day - 06/15 Klor-Con M10 Hx Tablets 10Meq 1 PO bid Unknown /0000 ER - 06/15 Lamictal Hx Tablets 100mg 1 by mouth Unknown /0000 po at hs - 07/07 Cholestyramine Hx Packet 4gm as needed Unknown /0000 - 07/06 Metformin HCL ER Hx Tablets 500mg Take One Unknown /0000 ER 24HR Tablet By - Mouth in 07/06 the morning /2017 and 2 at night. Vital Signs Date Vital Result Comment 07/07/2017 Height 62 inches 5'2" Weight 150.00 lb Heart Rate 72 /min BP Systolic Sitting 140 mmHg BP Diastolic Sitting 86 mmHg Respiratory Rate 16 /min BMI (Body Mass Index) 27.4 kg/m2 02/09/2017 Height 62 inches 5'2" Weight 145.00 lb Heart Rate 74 /min BP Systolic 132 mmHg BP Diastolic 76 mmHg Respiratory Rate 14 /min BMI (Body Mass Index) 26.5 kg/m2 10/20/2016 Height 62 inches 5'2" Weight 140.00 lb Heart Rate 68 /min BP Systolic Sitting 130 mmHg BP Diastolic Sitting 86 mmHg Respiratory Rate 16 /min BMI (Body Mass Index) 25.6 kg/m2 06/16/2016 Height 62 inches 5'2" Weight 135.00 lb Heart Rate 76 /min BP Systolic Sitting 120 mmHg BP Diastolic Sitting 84 mmHg Respiratory Rate 16 /min BMI (Body Mass Index) 24.7 kg/m2 03/09/2016 Height 62 inches 5'2" Weight 134.00 lb Heart Rate 78 /min BP Systolic Sitting 120 mmHg BP Diastolic Sitting 80 mmHg Respiratory Rate 16 /min BMI (Body Mass Index) 24.5 kg/m2 07/30/2015 Height 62 inches 5'2" Weight 149.00 lb Heart Rate 64 /min BP Systolic Sitting 136 mmHg BP Diastolic Sitting 84 mmHg Respiratory Rate 14 /min BMI (Body Mass Index) 27.2 kg/m2 03/12/2015 Height 62 inches 5'2" Weight 145.00 lb Heart Rate 56 /min BP Systolic Sitting 136 mmHg BP Diastolic Sitting 80 mmHg Respiratory Rate 14 /min BMI (Body Mass Index) 26.5 kg/m2 09/23/2014 Height 62 inches 5'2" Weight 130.00 lb Heart Rate 80 /min BP Systolic Sitting 120 mmHg BP Diastolic Sitting 78 mmHg Respiratory Rate 17 /min BMI (Body Mass Index) 23.8 kg/m2 04/17/2014 Height 62 inches 5'2" Weight 116.00 lb Heart Rate 56 /min BP Systolic Sitting 148 mmHg BP Diastolic Sitting 70 mmHg Respiratory Rate 12 /min BMI (Body Mass Index) 21.2 kg/m2 10/10/2013 Height 62 inches 5'2" Weight 130.00 lb Heart Rate 80 /min BP Systolic Sitting 120 mmHg BP Diastolic Sitting 70 mmHg Respiratory Rate 16 /min BMI (Body Mass Index) 23.8 kg/m2 01/15/2013 Heart Rate 60 /min BP Systolic Sitting 120 mmHg BP Diastolic Sitting 60 mmHg Respiratory Rate 17 /min 08/24/2012 Heart Rate 60 /min BP Systolic Sitting 122 mmHg BP Diastolic Sitting 62 mmHg Respiratory Rate 18 /min 05/24/2012 Heart Rate 69 /min BP Systolic Sitting 122 mmHg BP Diastolic Sitting 68 mmHg Respiratory Rate 16 /min Results Test Date Test Result H/L Range Note CBC Auto Diff 12/01/2016 White Blood Count 7.7 10^3/uL 3.5-10.8 Red Blood Count 4.00 10^6/uL 4.0-5.4 Hemoglobin 12.5 g/dL 12.0-16.0 Hematocrit 36 % 35-47 Mean Corpuscular Volume 91 fL 80-97 Mean Corpuscular Hemoglobin 31 pg 27-31 Mean Corpuscular HGB Conc 34 g/dL 31-36 Red Cell Distribution Width 15 % 10.5-15 Platelet Count 259 10^3/uL 150-450 Mean Platelet Volume 7 um3 Low 7.4-10.4 Abs Neutrophils 3.4 10^3/uL 1.5-7.7 Abs Lymphocytes 3.5 10^3/uL 1.0-4.8 Abs Monocytes 0.6 10^3/uL 0-0.8 Abs Eosinophils 0.1 10^3/uL 0-0.6 Abs Basophils 0.1 10^3/uL 0-0.2 Abs Nucleated RBC 0.01 10^3/uL Granulocyte % 44.6 % 38-83 Lymphocyte % 45.3 % 25-47 Monocyte % 7.5 % 1-9 Eosinophil % 1.6 % 0-6 Basophil % 1.0 % 0-2 Nucleated Red Blood Cells % 0.1 Comp Metabolic Panel 12/01/2016 Sodium 136 mmol/L 133-145 Potassium 3.7 mmol/L 3.5-5.0 Chloride 98 mmol/L Low 101-111 Co2 Carbon Dioxide 30 mmol/L 22-32 Anion Gap 8 mmol/L 2-11 Glucose 69 mg/dL Low 70-100 Blood Urea Nitrogen 19 mg/dL 6-24 Creatinine 0.82 mg/dL 0.51-0.95 BUN/Creatinine Ratio 23.2 High 8-20 Calcium 8.9 mg/dL 8.6-10.3 Total Protein 6.1 g/dL Low 6.4-8.9 Albumin 3.8 g/dL 3.2-5.2 Globulin 2.3 g/dL 2-4 Albumin/Globulin Ratio 1.7 1-3 Total Bilirubin 0.30 mg/dL 0.2-1.0 Alkaline Phosphatase 54 U/L 34-104 Alt 21 U/L 7-52 Ast 19 U/L 13-39 Egfr Non- 69.3 >60 Egfr 89.2 >60 1 Lipid Profile (Trig/Chol/HDL) 12/01/2016 Triglycerides 248 mg/dL 2 Cholesterol 221 mg/dL 3 HDL Cholesterol 48.0 mg/dL 4 LDL Cholesterol 123 mg/dL 5 Laboratory test finding 12/01/2016 Valproic Acid (Depakene) 100.0 g/mL 50-100 Free T4 (Free Thyroxine) 1.17 ng/dL High 0.61-1.12 T3 Free 2.80 pg/mL 2.5-3.9 TSH (Thyroid Stim Horm) 0.63 mcIU/mL 0.34-5.60 Vitamin B12 375 pg/mL 180-914 6 Vitamin D Total 25(Oh) 19.2 ng/mL Low 20-50 Connective Tissue Panel 10/20/2016 Anti-Nuclear Antibody 0.2 U 7 Cyclic Citrullinated Peptide <15.6 U 8 Interpretation See Comment 9 Laboratory test finding 10/20/2016 Erythrocyte Sed Rate 5 mm/Hr 0-40 C Reactive Protein < 1.00 mg/L < 5.00 10 Lyme Disease Serology Negative Negative 11 Comp Metabolic Panel 10/02/2012 Sodium 134 mmol/L 133-145 Potassium 4.2 mmol/L 3.5-5.0 Chloride 101 mmol/L 101-111 Co2 Carbon Dioxide 26.0 mmol/L 22-32 Anion Gap 7.0 mmol/L 2-11 Glucose 76 mg/dL 70-100 Blood Urea Nitrogen 23 mg/dL 6-24 Creatinine 0.90 mg/dL 0.50-1.40 BUN/Creatinine Ratio 25.6 High 8-20 Calcium 9.4 mg/dL 8.1-9.9 Total Protein 6.3 g/dL 6.2-8.1 Albumin 3.8 g/dL 3.2-5.2 Globulin 2.5 g/dL 2-4 Albumin/Globulin Ratio 1.5 1-3 Total Bilirubin 0.4 mg/dL 0.4-1.5 Alkaline Phosphatase 43 U/L 30-110 Alt 11 U/L Low 14-54 Ast 20 U/L 12-42 Egfr Non- 63.0 >60 Egfr 81.1 >60 12 Lipid Profile (Trig/Chol/HDL) 10/02/2012 Triglycerides 166 mg/dL 40-200 Cholesterol 154 mg/dL Less than 200 HDL Cholesterol 42 mg/dL 40-60 13 Cholesterol/HDL Ratio 3.7 Average 1-4.44 LDL Cholesterol 78.8 Less Than 100 14 Laboratory test finding 10/02/2012 Vitamin B12 433 pg/mL 180-914 15 Valproic Acid 90.5 g/mL 50.0-100.0 16 Free T4 1.06 ng/mL 0.61-1.24 17 Free T3 3.09 pg/mL 2.39-6.79 18 TSH (Thyroid Stimulating Horm) 0.50 miu/mL 0.34-5.60 19 CBC Auto Diff 10/02/2012 White Blood Count 6.8 10^3/uL 4.8-10.8 Red Blood Count 4.43 10^6/uL 4.0-5.4 Hemoglobin 12.2 g/dL 12.0-16.0 Hematocrit 37 % 35-47 Mean Corpuscular Volume 84 fL 80-97 Mean Corpuscular Hemoglobin 28 pg 27-31 Mean Corpuscular HGB Conc 33 g/dL 31-36 Red Cell Distribution Width 19 % High 10.5-15 Platelet Count 239 10^3/uL 150-450 Mean Platelet Volume 7 um3 Low 7.4-10.4 Abs Neutrophils 2.7 10^3/uL 1.5-7.7 Abs Lymphocytes 3.5 10^3/uL 1.0-4.8 Abs Monocytes 0.5 10^3/uL 0-0.8 Abs Eosinophils 0.1 10^3/uL 0-0.6 Abs Basophils 0 10^3/uL 0-0.2 Abs Nucleated RBC 0 10^3/uL Manual Differential 10/02/2012 Neutrophil % 38 % 38-83 Band % 2 % 0-8 Lymphocytes % 51 % High 25-47 Monocytes % 5 % 0-13 Eosinophils % 3 % 0-6 Metamyelocytes % 1 % 0-2 RBC Morphology Normal Normal Laboratory test finding 10/02/2012 Pathologist Review (SEE NOTE) 20 Vitamin D, 25 Hydroxy 10/02/2012 25-Hydroxy Vitamin D2 <4.0 ng/mL 25-Hydroxy Vitamin D3 44 ng/mL 25-Hydroxy Vitamin D Total 44 ng/mL 21 1 Because ethnic data is not always readily available, this report includes an eGFR for both -Americans and non- Americans. The National Kidney Disease Education Program (NKDEP) does not endorse the use of the MDRD equation for patients that are not between the ages of 18 and 70, are , have extremes of body size, muscle mass, or nutritional status, or are non- or non-. According to the National Kidney Foundation, irrespective of diagnosis, the stage of the disease is based on the level of kidney function: Stage Description GFR(mL/min/1.73 m(2)) 1 Kidney damage with normal or decreased GFR 90 2 Kidney damage with mild decrease in GFR 60-89 3 Moderate decrease in GFR 30-59 4 Severe decrease in GFR 15-29 5 Kidney failure <15 (or dialysis) 2 Desirable <150 Borderline high 150-199 High 200-499 Very High >500 3 Desirable <200 Borderline high 200-239 High >239 4 Low <40 Desirable: 40-60 High: >60 5 Desirable: <100 mg/dL Near Optimal: 100-129 mg/dL Borderline High: 130-159 mg/dL High: 160-189 mg/dL Very High: >189 mg/dL 6 Normal Range 180 to 914 Indeterminate Range 145 to 180 Deficient Range <145 7 REFERENCE VALUE <=1.0 (Negative) 8 REFERENCE VALUE <20.0 (Negative) 9 Tests for antibodies to dsDNA and KEIKO antigens are not performed automatically unless the MARY ELLEN result is > or= 3.0 U. Studies performed at [facility] indicate that positive MARY ELLEN results <3.0 U are rarely accompanied by positive second order tests. Test Performed by: [place] [address] 10 Acute inflammation: >10.00 11 Serologic response to B. burgdorferi infection is not detected, but cannot rule out early infection during which low or undetectable antibody levels to B. burgdorferi may be present. If clinically indicated, a new serum specimen should be submitted in 7-14 days. Test Performed by: [place] [address] 12 Because ethnic data is not always readily available, this report includes an eGFR for both -Americans and non- Americans. The National Kidney Disease Education Program (NKDEP) does not endorse the use of the MDRD equation for patients that are not between the ages of 18 and 70, are , have extremes of body size, muscle mass, or nutritional status, or are non- or non-. According to the National Kidney Foundation, irrespective of diagnosis, the stage of the disease is based on the level of kidney function: Stage Description GFR(mL/min/1.73 m(2)) 1 Kidney damage with normal or decreased GFR 90 2 Kidney damage with mild decrease in GFR 60-89 3 Moderate decrease in GFR 30-59 4 Severe decrease in GFR 15-29 5 Kidney failure <15 (or dialysis) 13 HDL Interpretation: Undesirable: High Risk: Less than 40 mg/dL Desirable: Low Risk: Greater than 60 mg/dL 14 LDL Interpretation: Low Risk Optimal Level: LDL Less than 100 mg/dL Near or Above Optimal: LDL 100-129 mg/dL Borderline High Risk: LDL 130-159 mg/dL High Risk: LDL 160-189 mg/dL Very High Risk: LDL Greater than 189 mg/dL 15 FASTING 16 The detection limit for Valproic Acid is 10.0 mcg/ml . Values less than 10.0 mcg/ml cannot be accurately measured. 17 FASTING 18 FASTING 19 FASTING 20 Reviewed by Shala Ferrara MD CBC and smear reviewed. Inverted PMN/lymph ratio noted. No blasts seen. 21 -- REFERENCE VALUE -- 25-HYDROXY D TOTAL (D2+D3) Optimum levels in the normal population are 25-80 Test Performed by: [place] [address] [employer]hop Cleaner: Kavin Roth III, M.D. Procedures Date CPT Code Description Status 05/18/2015 01014 Polysomnography Sleep Staging 4+ Parameters Completed 09/24/2013 12243 Treadmill Interp/Report Only Completed 09/24/2013 23692 Stress Test Supervsn W/Out I/R Completed 09/24/2013 99139 EKG, Interpretation Only Completed Encounters Type Date Location Provider CPT E/M Dx Office Visit 07/07/2017 [facility] Kelvin Flores M.D. 58139 G20 3:00p [facility] G25.0 F32.9 R26.81 G47.00 R13.10 G47.52 Office Visit 02/09/2017 3:00p [facility] Janice Kinney 16473 G20 [facility] G25.0 F32.9 R26.81 Office Visit 10/20/2016 2:45p [facility] Janice Kinney, 81095 G20 [facility] M.D. G25.0 F32.9 G47.00 F45.42 Office Visit 06/16/2016 2:45p [facility] Janice Kinney, 65788 G20 [facility] M.[facility]. G25.0 F32.9 I95.1 Office Visit 03/09/2016 2:00p [facility] Janice Kinney, 73355 G20 [facility] M.[facility]. F32.9 G25.0 I95.1 Office Visit 07/30/2015 2:30p [facility] Janice Kinney, 55291 G25.0 [facility] M.[facility]. G20 F32.9 Office Visit 03/12/2015 2:30p [facility] Janice Kinney, 66753 G20 [facility] M.D. G25.0 R40.0 Office Visit 09/23/2014 11:30a [facility] Janice Kinney, 69129 332.0 [facility] M.D. 333.1 311 Office Visit 04/17/2014 1:45p [facility] Janice Kinney, 43440 332.0 [facility] M.D. 333.1 311 Office Visit 10/10/2013 1:00p [facility] Janice Kinney, 35875 332.0 [facility] M.D. 311 333.1 Office Visit 09/24/2013 4:27p [facility] Josse Almazan 96280 786.50 Hospitalists Leonor Saucedo 401.9 250.00 332.0 Office Visit 09/23/2013 4:26p [facility] Anibal Villavicencio, 76963 786.50 [facility] 401.9 250.00 332.0 Office Visit 03/26/2013 11:45a [facility] Janice Kinney, 95495 332.0 [facility] M.D. Office Visit 01/15/2013 11:45a [facility] Janice Kinney, 56867 332.0 [facility] M.D. 311 Office Visit 08/24/2012 12:45p [facility] Janice Kinney, 48868 332.0 [facility] M.[facility] Office Visit 05/24/2012 12:00p [facility] Janice Kinney, 44942 333.1 [facility] M.D. 781.2 Office Visit 02/03/2012 3:15p [facility] Janice Kinney, 21037 333.1 [facility] M.D. 781.2 Office Visit 12/08/2011 3:30p [facility] Janice Kinney, 12495 333.1 [facility] M.D. 311 Office Visit 10/17/2011 3:15p [facility] Janice Kinney, 49342 333.1 [facility] M.D. Plan of Care Future Appointment(s):09/07/2017 3:00 pm - Kelvin Flores M.D. at [facility] [address]07/07/2017 - Kelvin Flores M.D.G20 Parkinson's diseaseFollow up:Follow up 8 weeksRecommendations:Call me a week after the swallowing scayoS50.0 Essential nymimiK94.9 Major depressive disorder, single episode, sdpehrkqdnzW46.81 Unsteadiness on feetNew Therapy:Physical UpsywcoC55.00 Insomnia, srpaswhittaW73.10 Dysphagia, unspecifiedNew Orders: Swallowing Evaluation, 3 NepspP15.52 REM sleep behavior disorder
[2017-07-14 19:00] VITALS: BP 153/74
--- NOTE | 2017-07-14 19:40 | UC ---
Skin Complaint HPI - HPI Summary HPI Summary: 67 yo WF p/w left epigastric skin vesicular rash on and off x few weeks but new fresh ones keep cropping up, mildly burning and itchy. Also has h/o fever blisters and is on Acyclovir 500 qd for suppression - History of Current Complaint Chief Complaint: UCSkin Time Seen by Provider: 07/14/17 19:09 Stated Complaint: RASH Hx Obtained From: Patient Onset/Duration: Lasting Weeks, Still Present Skin Exposure Onset/Duration: Days Ago, Weeks Ago Onset Severity: Moderate Current Severity: Moderate Pain Intensity: 1 - Allergy/Home Medications Allergies/Adverse Reactions: Allergies Allergy/AdvReac Type Severity Reaction Status Date / Time amoxicillin Allergy YEAST Verified 07/14/17 19:02 INFECTION ampicillin Allergy THRUSH, Verified 07/14/17 19:02 YEAST INFECTIONS cephalexin [From Keflex] Allergy THRUSH, Verified 07/14/17 19:02 YEAST INFECTIONS BANDAID Allergy Rash Uncoded 07/14/17 19:02 ENVIRONMENTAL/SEASON Allergy CONGESTION, Uncoded 07/14/17 19:02 SNEEZING Home Medications: Home Medications Cholecalciferol TAB* [Vitamin D TAB*] 07/14/17 [History] Minerin Cream* [Eucerin Cream*] 1 TOPICAL 07/14/17 [History] Review of Systems Constitutional: Negative Skin: Rash Eyes: Negative ENT: Negative Respiratory: Negative Cardiovascular: Negative Gastrointestinal: Negative Genitourinary: Negative Motor: Negative Neurovascular: Negative Musculoskeletal: Negative Neurological: Negative Psychological: Negative All Other Systems Reviewed And Are Negative: Yes PMH/Surg Hx/FS Hx/Imm Hx Previously Healthy: Yes Neurological History: Other - parkinson's Other Neurological History: Parkinson's Psychological History: Anxiety, Depression, Bipolar Disorder - Surgical History Surgical History: Yes Surgery Procedure, Year, and Place: [place] [facility] [place]IC [place] [facility] [place] 1973 D&C, WITH [place]IC T[place]AL, [facility] [place]. [place], [facility] [place] [facility] [place]. 2012 LEFT CATARACT [place]TRA[place] WITH [place]OL IMPLANT, [facility] [place]OS[place] X 2, [facility] - Family History Known Family History: Positive: Unknown, Cardiac Disease, Diabetes, Blood Disorder Negative: Renal Disease Family History: multiple disease but she is unsure of what at this time - Social History Alcohol Use: Rare Substance Use Type: None Smoking Status (MU): Former Smoker Type: Cigarettes Amount Used/How Often: 1 PPD Length of Time of Smoking/Using Tobacco: 30 YEARS ON AND OFF Have You Smoked in the Last Year: No When Did the Patient Quit Smoking/Using Tobacco: 02/20/2006 - Immunization History Most Recent Influenza Vaccination: 2009 Most Recent Tetanus Shot: does not know Most Recent Pneumonia Vaccination: 11/2009 Physical Exam Triage Information Reviewed: Yes Appearance: No Pain Distress Vital Signs: Initial Vital Signs Temp 37.2 C 07/14/17 18:56 Pulse 69 07/14/17 18:56 Resp 16 07/14/17 18:56 BP 153/74 07/14/17 18:56 Pulse Ox 99 07/14/17 18:56 Eye Exam: Normal ENT Exam: Normal Dental Exam: Normal Neck exam: Normal Neck: Positive: 1 Respiratory Exam: Normal Cardiovascular Exam: Normal Abdominal Exam: Normal Musculoskeletal Exam: Normal Neurological Exam: Normal Psychological Exam: Normal Skin: Positive: rashes - small 4-5 erythematous denuded vesicular rash left of sternum around T5-6 dermatome Course/Dx - Diagnoses Provider Diagnoses: shingles Discharge - Sign-Out/Discharge Documenting (check all that apply): Discharge/Admit/Transfer - Discharge Plan Condition: Stable Disposition: HOME Prescriptions: ValACYclovir (*) [Valtrex 1 GM(*)] 1 gm PO TID 7 Days #21 tab Patient Education Materials: Shingles (ED) Referrals: Kaylyn Silver MD [Primary Care Provider] - - Billing Disposition and Condition Condition: STABLE Disposition: HOME
== END 2017-07-14 19:49 | disposition home or self-care (01) ==
LOC: UCEAST 18:21
DX: B02.9 Zoster without complications (principal); Z87.891 Personal history of nicotine dependence; Z88.0 Allergy status to penicillin; Z88.1 Allergy status to other antibiotic agents; Z91.09 Other allergy status, other than to drugs and biological substances; J30.2 Other seasonal allergic rhinitis
CPT/HCPCS: 99212; G0463

== ENCOUNTER 2018-05-18 15:36 | Emergency (ER) | payer MEDICARE, BC ==
[2018-05-18 15:48] VITALS: BP 141/62
--- NOTE | 2018-05-18 16:26 | UC ---
Skin Complaint HPI - HPI Summary HPI Summary: 68-year-old woman 68-year-old woman comes in with a chief complaint of a rash. The rash started yesterday. It itches. It moves around and it's raised like hives. Patient has been told she has mononucleosis her boyfriend has mononucleosis and she's been having mononucleosis symptoms the past 2 weeks. She did use some hydrocortisone cream which helped decrease the itching she was able to get some sleep. She did have a sore throat in the last 2 weeks when she 's been sick. No difficulty breathing or swallowing. No known new medications or allergens. - History of Current Complaint Chief Complaint: UCSkin Time Seen by Provider: 05/18/18 16:12 Stated Complaint: RASH Hx Last Menstrual Period: post Pain Intensity: 2 - Allergy/Home Medications Allergies/Adverse Reactions: Allergies Allergy/AdvReac Type Severity Reaction Status Date / Time amoxicillin Allergy YEAST Verified 05/18/18 15:48 INFECTION ampicillin Allergy THRUSH, Verified 05/18/18 15:48 YEAST INFECTIONS cephalexin [From Keflex] Allergy THRUSH, Verified 05/18/18 15:48 YEAST INFECTIONS BANDAID Allergy Rash Uncoded 01/04/18 17:58 ENVIRONMENTAL/SEASON Allergy CONGESTION, Uncoded 01/04/18 17:58 SNEEZING Home Medications: Home Medications Potassium Chloride [Klor-Con 10] 1 tab PO BID 05/18/18 [History Confirmed ] lamoTRIgine [Lamictal] 75 mg PO DAILY 05/18/18 [History Confirmed 05/18/18] PMH/Surg Hx/FS Hx/Imm Hx Previously Healthy: Yes Endocrine History: Hypothyroidism Cardiovascular History: Hypertension GI/ History: Gastroesophageal Reflux Psychological History: Bipolar Disorder - Surgical History Surgical History: Yes Surgery Procedure, Year, and Place: [place] [facility] [place] LAPAROSCOPIC [place]OMY[place] [facility] [place] 1973 D&C, WITH LAPAROSCOPIC TUBAL, [facility] [place]. 1966 LEFT BREAST TUMOR REMOVAL, [facility] [place] [facility] [place] LEFT CATARACT EXTRACTION WITH IOL IMPLANT, [facility] [place] 2, [facility] [place] - Family History Known Family History: Positive: Unknown, Cardiac Disease, Diabetes, Blood Disorder Negative: Renal Disease Family History: multiple disease but she is unsure of what at this time - Social History Alcohol Use: Rare Substance Use Type: None Smoking Status (MU): Heavy Every Day Tobacco Smoker Type: Cigarettes Amount Used/How Often: 1 PPD Length of Time of Smoking/Using Tobacco: 30 YEARS ON AND OFF Have You Smoked in the Last Year: No When Did the Patient Quit Smoking/Using Tobacco: 02/20/2006. started again 09/07 Household Exposure Type: Cigarettes - Immunization History Most Recent Influenza Vaccination: 2009 Most Recent Tetanus Shot: does not know Most Recent Pneumonia Vaccination: 11/2009 Review of Systems All Other Systems Reviewed And Are Negative: Yes Constitutional: Positive: Negative Skin: Positive: Rash Eyes: Positive: Negative ENT: Positive: Negative Respiratory: Positive: Negative Cardiovascular: Positive: Negative Gastrointestinal: Positive: Negative Motor: Positive: Negative Neurovascular: Positive: Negative Musculoskeletal: Positive: Negative Neurological: Positive: Negative Psychological: Positive: Negative Is Patient Immunocompromised?: No Physical Exam Triage Information Reviewed: Yes Appearance: Well-Appearing, No Pain Distress, Well-Nourished Vital Signs: Initial Vital Signs Temp 99.1 F 05/18/18 15:42 Pulse 81 05/18/18 15:42 Resp 18 05/18/18 15:42 BP 141/62 05/18/18 15:42 Pulse Ox 98 05/18/18 15:42 Vital Signs Reviewed: Yes Eye Exam: Normal Eyes: Positive: Conjunctiva Clear ENT: Positive: Pharynx normal, TMs normal. Negative: Pharyngeal erythema, Nasal congestion, Nasal drainage Neck exam: Normal Neck: Positive: Supple Respiratory: Positive: Lungs clear, Normal breath sounds, No respiratory distress Cardiovascular: Positive: RRR Musculoskeletal Exam: Normal Musculoskeletal: Positive: Strength Intact, ROM Intact Neurological Exam: Normal Neurological: Positive: Alert, Muscle Tone Normal Psychological Exam: Normal Psychological: Positive: Age Appropriate Behavior Skin: Positive: Other - Erythematous blanching rash diffusely distributed across the trunk. There are some raised areas consistent with hives. Course/Dx - Course Course Of Treatment: The rash does appear to be hives. We'll treat with prednisone 40 mg a day for 5 days. Because of the patient's multiple medications we erin a CBC and a CMP. Also let the patient know that if she did not improve completely she needs to get reevaluated. She should follow-up with her primary care doctor. Also let her know that if she worsened and she felt more ill she needs to go to the emergency department for further evaluation. - Diagnoses Provider Diagnosis: Hives, Rash Discharge - Sign-Out/Discharge Documenting (check all that apply): Patient Departure All imaging exams completed and their final reports reviewed: No Studies - Discharge Plan Condition: Stable Disposition: HOME Prescriptions: predniSONE TAB* [Deltasone 20 MG TAB*] 40 mg PO DAILY PRN #10 tab PRN Reason: Rash Patient Education Materials: Urticaria (ED), Acute Rash (ED) Referrals: Kaylyn Silver MD [Primary Care Provider] - Additional Instructions: FOLLOW UP WITH YOUR DOCTOR. GO TO THE EMERGENCY DEPARTMENT IF YOUR CONDITION WORSENS; YOU FEEL ILL, FEVER, DIFFICULTY SWALLOWING OR BREATHING OR ANY QUESTIONS OR CONCERNS. - Billing Disposition and Condition Condition: STABLE Disposition: Home
[2018-05-18 18:48] LABS: ABS Basophils 0 10^3/ul (0-0.2); ABS Eosinophils 0.1 10^3/ul (0-0.6); ABS Lymphocytes 1.6 10^3/ul (1.0-4.8); ABS Monocytes 0.6 10^3/ul (0-0.8); ABS Neutrophils 3.2 10^3/ul (1.5-7.7); ABS Nucleated RBC 0 10^3/ul; Eosinophil % 1.9 %; Hematocrit 45 % (33-41); Hemoglobin 15.5 g/dL (12.0-16.0); Lymphocyte % 28.2 %; Mean Corpuscular HGB Conc 34 g/dL (31-36); Mean Corpuscular Hemoglobin 32 pg (27-31); Mean Corpuscular Volume 93 fL (80-97); Mean Platelet Volume 7.6 fL (7.4-10.4); Nucleated Red Blood Cells % 0.4; Platelet Count 191 10^3/uL (150-450); Red Blood Count 4.89 10^6 /uL (3.70-4.87); Red Cell Distribution Width 14 % (10.5-15); White Blood Count 5.5 10^3/uL (3.5-10.8)
--- NOTE | 2018-05-19 07:44 | UC ---
- Progress Note Progress Note: CBC with dif - reviewed and negative no change cortes 05/19/18 Course/Dx - Diagnoses Provider Diagnoses: Hives, Rash Discharge - Sign-Out/Discharge Documenting (check all that apply): Post-Discharge Follow Up All imaging exams completed and their final reports reviewed: No Studies - Discharge Plan Condition: Stable Disposition: HOME Prescriptions: predniSONE TAB* [Deltasone 20 MG TAB*] 40 mg PO DAILY PRN #10 tab PRN Reason: Rash Patient Education Materials: Urticaria (ED), Acute Rash (ED) Referrals: Kaylyn Silver MD [Primary Care Provider] - Additional Instructions: FOLLOW UP WITH YOUR DOCTOR. GO TO THE EMERGENCY DEPARTMENT IF YOUR CONDITION WORSENS; YOU FEEL ILL, FEVER, DIFFICULTY SWALLOWING OR BREATHING OR ANY QUESTIONS OR CONCERNS. - Billing Disposition and Condition Condition: STABLE Disposition: Home
[2018-05-19 10:15] LABS: Albumin 4.4 g/dL (3.2-5.2); Calcium 9.5 mg/dL (8.6-10.3); Potassium 3.5 mmol/L (3.5-5.0); Total Bilirubin 0.4 mg/dL (0.2-1.0)
[2018-05-19 10:20] LABS: Albumin/Globulin Ratio 1.9 (1-3); BUN/Creatinine Ratio 15.7 (8-20); EGFR African American 100.1 (>60); EGFR Non-African American 82.7 (>60); Globulin 2.3 g/dL (2-4); Total Protein 6.7 g/dL (6.4-8.9)
== END 2018-05-18 17:10 | disposition home or self-care (01) ==
LOC: UCEAST 15:36
DX: L50.9 Urticaria, unspecified (principal); I10 Essential (primary) hypertension; E03.9 Hypothyroidism, unspecified; K21.9 Gastro-esophageal reflux disease without esophagitis; F31.9 Bipolar disorder, unspecified; F17.210 Nicotine dependence, cigarettes, uncomplicated; Z88.3 Allergy status to other anti-infective agents; Z88.8 Allergy status to other drugs, medicaments and biological substances
CPT/HCPCS: 36415; 80053; 85025; 87651; 99212; G0463

== ENCOUNTER 2018-05-21 03:28 | Emergency (ER) | payer MEDICARE, BC ==
--- NOTE | 2018-05-21 04:00 | ED ---
Respiratory - HPI Summary HPI Summary: Pt is a 68 y/o F presenting to the ED with a chief respiratory complaint onset . She went to urgent care on 05/18/18 for the symptoms shes currently having, which includes pruritic hives, cough, sore throat, ear aches, and night sweats. Urgent care gave her prednisone which she has taken three doses of, but she believes her symptoms have gotten worse. She has also been taking Benadryl for the hives. She denies fever. - History of Current Complaint Chief Complaint: EDAllergicReaction Stated Complaint: "POSS ALLERGIC REACTION" PER EMS Time Seen by Provider: 05/21/18 03:43 Hx Obtained From: Patient Onset/Duration: Sudden Onset, Lasting Days, Still Present Timing: Constant Initial Severity: Moderate Current Severity: Moderate Pain Intensity: 0 Character: Cough (Nonproductive) Sputum Amount: None Aggravating Factor(s): URI, Other - recent mono Alleviating Factor(s): Nothing Associated Signs and Symptoms: SOB, Diaphoresis, Dyspnea - Allergy/Home Medications Allergies/Adverse Reactions: Allergies Allergy/AdvReac Type Severity Reaction Status Date / Time amoxicillin Allergy YEAST Verified 05/21/18 03:35 INFECTION ampicillin Allergy THRUSH, Verified 05/21/18 03:35 YEAST INFECTIONS cephalexin [From Keflex] Allergy THRUSH, Verified 05/21/18 03:35 YEAST INFECTIONS BANDAID Allergy Rash Uncoded 05/21/18 03:35 ENVIRONMENTAL/SEASON Allergy CONGESTION, Uncoded 05/21/18 03:35 SNEEZING Home Medications: Home Medications Ascorbic Acid [Vitamin C] 1,000 mg PO DAILY 05/21/18 [History Confirmed 05/21/18 ] Benzonatate CAP* [Tessalon 100 MG CAP*] 100 mg PO TID PRN 05/21/18 [History Confirmed 05/21/18] Cranberry 1 tab PO DAILY 05/21/18 [History Confirmed 05/21/18] Cyclosporine 0.05% OPHTH (NF) [Restasis 0.05% OPHTH] 1 drop BOTH EYES DAILY 03/10 [History Confirmed 05/21/18] Estradiol VAGINAL TAB(NF) [Vagifem] 10 mcg VAGINAL DAILY 05/21/18 [History Confirmed 05/21/18] HYDROcodone/ACETAMIN 5-325 MG* [[place] 5-325 TAB*] 1 tab PO Q6H PRN 05/21/18 [ History Confirmed 05/21/18] Melatonin 10 mg PO BEDTIME 05/21/18 [History Confirmed 05/21/18] Multivitamin [Multivitamins] 1 cap PO DAILY 05/21/18 [History Confirmed 05/21/18 ] Nicotine Polacrilex [Nicotine Gum] 4 mg BC DAILY 05/21/18 [History Confirmed 03/10] PMH/Surg Hx/FS Hx/Imm Hx Previously Healthy: Yes Endocrine/Hematology History: Reports: Hx Thyroid Disease - HYPOTHYROIDISM Comment Only: Hx Diabetes - She is on metformin for diabetes? weight gain? Cardiovascular History: Reports: Hx Angina, Hx Hypertension, Other Cardiovascular Problems/Disorders - SEES [facility], BUT NOT ON REGULAR BASIS Denies: Hx Congestive Heart Failure, Hx Coronary Artery Disease, Hx Hypercholesterolemia, Hx Myocardial Infarction, Hx Pacemaker/ICD, Hx Valvular Heart Disease Respiratory History: Reports: Hx Asthma - HX OF ASTHMA - NO INHALER, Hx Chronic Obstructive Pulmonary Disease (COPD) - past smoker., Other Respiratory Problems/ Disorders - COPD Denies: Hx Lung Cancer GI History: Reports: Hx Gastroesophageal Reflux Disease - CONTROL WITH MEDS, Other GI Disorders - TAKING METFORMIN DUE TO THE DEPAKOTE AND WEIGHT GAIN History: Reports: Other Problems/Disorders - spastic bladder Denies: Hx Renal Disease Musculoskeletal History: Reports: Hx Arthritis, Hx Osteoporosis, Hx Tendonitis - CHRONIC IN MARA HANDS Sensory History: Reports: Hx Cataracts, Hx Contacts or Glasses - GLASSES, Hx Vision Problem - bifocals Denies: Hx Hearing Aid Opthamlomology History: Reports: Hx Cataracts, Hx Contacts or Glasses - GLASSES , Hx Vision Problem - bifocals Neurological History: Reports: Hx Migraine - ONCE A WEEK, Hx Nerve Disease - PARKINSON DISEASE, Other Neuro Impairments/Disorders - HX OF DIZZINESS R/T MEDICATIONS Denies: Hx Seizures Psychiatric History: Reports: Hx Anxiety - CONTROL WITH MEDS, Hx Post Traumatic Stress Disorder, Hx Bipolar Disorder Denies: Hx Panic Disorder Comment Only: Hx Depression - BIPOLAR - Cancer History Hx Chemotherapy: No Hx Radiation Therapy: No - Surgical History Surgery Procedure, Year, and Place: 2005 APPENDECTOMY, [facility] [place]. 2005 LAPAROSCOPIC CHOLECYSTECTOMY, [facility] [place]. 1974 D&C, WITH LAPAROSCOPIC TUBAL, [facility] [place]. 1966 LEFT BREAST TUMOR REMOVAL, [facility] [place]. CYSTOSCOPY, [facility] [place]. 2012 LEFT CATARACT EXTRACTION WITH IOL IMPLANT, [facility]. COLONOSCOPY X 2, [facility] Hx Anesthesia Reactions: No Infectious Disease History: No Infectious Disease History: Reports: Hx Shingles Denies: Hx Clostridium Difficile, Hx Hepatitis, Hx Human Immunodeficiency Virus (HIV), Hx of Known/Suspected MRSA, Hx Tuberculosis, Hx Known/Suspected VRE , History Other Infectious Disease, Traveled Outside the [place] in Last 30 Days - Family History Known Family History: Positive: Unknown, Cardiac Disease, Diabetes, Blood Disorder Negative: Renal Disease Family History: multiple disease but she is unsure of what at this time - Social History Alcohol Use: Rare Hx Substance Use: No Substance Use Type: Reports: None Hx Tobacco Use: Yes Smoking Status (MU): Heavy Every Day Tobacco Smoker Type: Cigarettes Amount Used/How Often: 1 PPD Length of Time of Smoking/Using Tobacco: 30 YEARS ON AND OFF Have You Smoked in the Last Year: No Review of Systems Positive: Skin Diaphoresis. Negative: Fever Positive: Sore Throat, Ear Ache Positive: Cough Positive: Other - hives All Other Systems Reviewed And Are Negative: Yes Physical Exam - Summary Physical Exam Summary: VITAL SIGNS: Reviewed. GENERAL: Patient is a well-developed and nourished female who is lying comfortable in the stretcher. Patient is not in any acute respiratory distress. HEAD AND FACE: No signs of trauma. No ecchymosis, hematomas or skull depressions. No sinus tenderness. EYES: PERRLA, EOMI x 2, No injected conjunctiva, no nystagmus. EARS: Hearing grossly intact. Ear canals and tympanic membranes are within normal limits. MOUTH: Oropharynx within normal limits. NECK: Supple, trachea is midline, no adenopathy, no JVD, no carotid bruit, no c- spine tenderness, neck with full ROM. CHEST: Symmetric, no tenderness at palpation LUNGS: Clear to auscultation bilaterally. No wheezing or crackles. CVS: Regular rate and rhythm, S1 and S2 present, no murmurs or gallops appreciated. ABDOMEN: Soft, non-tender. No signs of distention. No rebound no guarding, and no masses palpated. Bowel sounds are normal. EXTREMITIES: FROM in all major joints, no edema, no cyanosis or clubbing. NEURO: Alert and oriented x 3. No acute neurological deficits. Speech is normal and follows commands. SKIN: Dry and warm. Diffuse papillary rash. Triage Information Reviewed: Yes Vital Signs On Initial Exam: Initial Vitals Temp Pulse Resp BP Pulse Ox 98.4 F 76 18 176/83 96 05/21/18 03:38 05/21/18 03:38 05/21/18 03:38 05/21/18 03:38 05/21/18 03:38 Vital Signs Reviewed: Yes Diagnostics - Vital Signs Vital Signs Temp Pulse Resp BP Pulse Ox 05/21/18 03:38 98.4 F 76 18 176/83 96 - Laboratory Lab Statement: Any lab studies that have been ordered have been reviewed, and results considered in the medical decision making process. Disposition - Course Course Of Treatment: Pt is a 68 y/o F presenting to the ED with a chief respiratory complaint onset 05/17/18. She went to urgent care on 05/18/18 for the symptoms shes currently having, which includes pruritic hives, cough, sore throat, ear aches, and night sweats. She was given Prednisone which she has taken, but her sx have gotten worse. She denies fever. The pt is positive for Influenza A. She will be sent home with this diagnosis as well as allergic reaction and instructions to follow up with her primary care provider within 2- 3 days. She is agreeable with this plan. - Diagnoses Provider Diagnoses: Influenza A, Allergic reaction Discharge - Sign-Out/Discharge Documenting (check all that apply): Patient Departure Patient Received Moderate/Deep Sedation with Procedure: No - Discharge Plan Condition: Stable Disposition: HOME Prescriptions: hydrOXYzine HCL TAB* [Atarax 25 MG TAB*] 25 mg PO QID PRN #20 tab PRN Reason: Itching Oseltamivir CAP* [Tamiflu CAP*] 75 mg PO BID #10 cap predniSONE TAB* [Deltasone 20 MG TAB*] 60 mg PO DAILY #15 tab Referrals: Kaylyn Sliver MD [Primary Care Provider] - Additional Instructions: Please take your prescribed medications as instructed. Follow up with your primary care provider within 2-3 days. Return to the emergency department with any new or worsening symptoms. - Attestation Statements Document Initiated by Scribe: Yes Documenting Scribe: Morena Jorgensen Provider For Whom Scribe is Documenting (Include Credential): Sol Upton MD. Scribe Attestation: Morena Armendariz, scribed for Sol Upton MD. on 05/21/18 at 0603. Status of Scribe Document: Ready
[2018-05-21] MEDS ORDERED: predniSONE TAB* 20 MG PO ONE (04:15)
[2018-05-21] MEDS ORDERED: hydrOXYzine HCL TAB* 25 MG PO ONE (04:16)
[2018-05-21 04:46] LABS: Influenza A Molecular POSITIVE (Negative)
[2018-05-21] MEDS ORDERED: Oseltamivir CAP* 75 MG CAP PO ONE (05:20)
[2018-05-21 06:17] VITALS: BP 151/75
== END 2018-05-21 06:21 | disposition home or self-care (01) ==
LOC: ED 03:28
DX: J10.1 Influenza due to other identified influenza virus with other respiratory manifestations (principal); T78.40XA Allergy, unspecified, initial encounter; L50.9 Urticaria, unspecified; X58.XXXA Exposure to other specified factors, initial encounter; E11.9 Type 2 diabetes mellitus without complications; Z79.84 Long term (current) use of oral hypoglycemic drugs; E03.9 Hypothyroidism, unspecified; I20.9 Angina pectoris, unspecified; I10 Essential (primary) hypertension; J44.9 Chronic obstructive pulmonary disease, unspecified; K21.9 Gastro-esophageal reflux disease without esophagitis; F41.9 Anxiety disorder, unspecified; Z88.1 Allergy status to other antibiotic agents; Z88.0 Allergy status to penicillin; Z91.048 Other nonmedicinal substance allergy status; Z87.891 Personal history of nicotine dependence
CPT/HCPCS: 99283; A9270-GY; J7512

== ENCOUNTER 2018-06-05 05:49 | Emergency (ER) | payer MEDICARE, BC ==
--- NOTE | 2018-06-05 06:48 | ED ---
Lower Extremity - HPI Summary HPI Summary: 68 year old female presents to the emergency department for evaluation of pain and swelling on her left calf. This problem has been present for 1 week and is worsening. Pt describes the pain as a "throbbing cramp" and rates it as 6/10. She tried taking hydrocodone which she is prescribed for her back pain but it did not alleviate her symptoms. Standing and putting weight on her calf makes the pain worse. Pt is a current daily smoker. She states her mother had a clotting disorder which she from. She was told by her sister that she was tested for it in the past but she does not remember doing so. Pt denies travel for longer than 4 hours, trauma, palpitations, and SOB. She has chest pain which she attributes to her GERD symptoms and states it is unchanged. Pt is not on oral hormonal replacement therapy. - History of Current Complaint Chief Complaint: EDGeneral Stated Complaint: "SWOLLEN/THROBBING LEG" PER PT Time Seen by Provider: 06/05/18 06:00 Hx Obtained From: Patient Hx Last Menstrual Period: post Onset of Pain: Days Onset/Duration: Days Severity Initially: Moderate Severity Currently: Moderate Pain Intensity: 6 Pain Scale Used: 0-10 Numeric Timing: Constant Location: Is Discrete @ - left calf Character Of Pain: Throbbing Associated Signs And Symptoms: Positive: Swelling. Negative: Redness, Bruising , Fever, Weakness, Syncope Aggravating Factor(s): Standing, Ambulation, Weight Bearing Alleviating Factor(s): Rest Able to Bear Weight: Yes - with pain - Risk Factors DVT Risk Factors: Smoking, Family Hx of Clotting Disorder - mother - Allergies/Home Medications Allergies/Adverse Reactions: Allergies Allergy/AdvReac Type Severity Reaction Status Date / Time amoxicillin Allergy YEAST Verified 06/05/18 05:57 INFECTION ampicillin Allergy THRUSH, Verified 06/05/18 05:57 YEAST INFECTIONS cephalexin [From Keflex] Allergy THRUSH, Verified 06/05/18 05:57 YEAST INFECTIONS BANDAID Allergy Rash Uncoded 06/05/18 05:57 ENVIRONMENTAL/SEASON Allergy CONGESTION, Uncoded 06/05/18 05:57 SNEEZING PMH/Surg Hx/FS Hx/Imm Hx Previously Healthy: Yes Endocrine/Hematology History: Reports: Hx Thyroid Disease - HYPOTHYROIDISM Comment Only: Hx Diabetes - She is on metformin for diabetes? weight gain? Cardiovascular History: Reports: Hx Angina, Hx Hypertension, Other Cardiovascular Problems/Disorders - SEES [facility], BUT NOT ON REGULAR BASIS Denies: Hx Congestive Heart Failure, Hx Coronary Artery Disease, Hx Hypercholesterolemia, Hx Myocardial Infarction, Hx Pacemaker/ICD, Hx Valvular Heart Disease Respiratory History: Reports: Hx Asthma - HX OF ASTHMA - NO INHALER, Hx Chronic Obstructive Pulmonary Disease (COPD) - past smoker., Other Respiratory Problems/ Disorders - COPD Denies: Hx Lung Cancer GI History: Reports: Hx Gastroesophageal Reflux Disease - CONTROL WITH MEDS, Other GI Disorders - TAKING METFORMIN DUE TO THE DEPAKOTE AND WEIGHT GAIN History: Reports: Other Problems/Disorders - spastic bladder Denies: Hx Renal Disease Musculoskeletal History: Reports: Hx Arthritis, Hx Osteoporosis, Hx Tendonitis - CHRONIC IN MARA HANDS Sensory History: Reports: Hx Cataracts, Hx Contacts or Glasses - GLASSES, Hx Vision Problem - bifocals Denies: Hx Hearing Aid Opthamlomology History: Reports: Hx Cataracts, Hx Contacts or Glasses - GLASSES , Hx Vision Problem - bifocals Neurological History: Reports: Hx Migraine - ONCE A WEEK, Hx Nerve Disease - PARKINSON DISEASE, Other Neuro Impairments/Disorders - HX OF DIZZINESS R/T MEDICATIONS Denies: Hx Seizures Psychiatric History: Reports: Hx Anxiety - CONTROL WITH MEDS, Hx Post Traumatic Stress Disorder, Hx Bipolar Disorder Denies: Hx Panic Disorder Comment Only: Hx Depression - BIPOLAR - Cancer History Hx Chemotherapy: No Hx Radiation Therapy: No - Surgical History Surgery Procedure, Year, and Place: [place] [facility] [facility] [place] [facility] [place] D[place]C, WITH [place] [facility] [place] [facility] [place] [facility] [place] CATARACT [place] WITH [place] [facility] [place], [facility] Hx Anesthesia Reactions: No Infectious Disease History: No Infectious Disease History: Reports: Hx Shingles Denies: Hx Clostridium Difficile, Hx Hepatitis, Hx Human Immunodeficiency Virus (HIV), Hx of Known/Suspected MRSA, Hx Tuberculosis, Hx Known/Suspected VRE , History Other Infectious Disease, Traveled Outside the [place] in Last 30 Days - Family History Known Family History: Positive: Unknown, Cardiac Disease, Diabetes, Blood Disorder Negative: Renal Disease Family History: multiple disease but she is unsure of what at this time - Social History Alcohol Use: Rare Hx Substance Use: No Substance Use Type: Reports: None Hx Tobacco Use: Yes Smoking Status (MU): Heavy Every Day Tobacco Smoker Type: Cigarettes Amount Used/How Often: 1 PPD Length of Time of Smoking/Using Tobacco: 30 YEARS ON AND OFF Have You Smoked in the Last Year: No Review of Systems Constitutional: Negative Negative: Fever, Chills, Fatigue Eyes: Negative Cardiovascular: Negative Positive: Other - chest pain associated with GERD symptoms. Unchanged. Negative : Palpitations Respiratory: Negative Negative: Shortness Of Breath Gastrointestinal: Negative Negative: Abdominal Pain, Vomiting, Nausea Positive: Other - pain and swelling on the left calf. Negative: Arthralgia, Decreased ROM Skin: Negative Negative: Rash, Bruising Neurological: Negative Negative: Headache, Weakness, Paresthesia, Numbness, Syncope All Other Systems Reviewed And Are Negative: Yes Physical Exam Triage Information Reviewed: Yes Vital Signs On Initial Exam: Initial Vitals Temp Pulse Resp BP Pulse Ox 98.3 F 66 18 204/92 98 06/05/18 05:52 06/05/18 05:52 06/05/18 05:52 06/05/18 05:52 06/05/18 05:52 Vital Signs Reviewed: Yes Appearance: Positive: Well-Appearing, No Pain Distress, Well-Nourished Skin: Positive: Warm, Skin Color Reflects Adequate Perfusion, Dry, Tender - when palpating left lower calf. Head/Face: Positive: Normal Head/Face Inspection Eyes: Positive: EOMI, ROSIE, Conjunctiva Clear ENT: Positive: Normal ENT inspection, Hearing grossly normal, Pharynx normal Neck: Positive: Supple, Nontender Respiratory/Lung Sounds: Positive: Clear to Auscultation, Breath Sounds Present Cardiovascular: Positive: RRR, Pulses are Symmetrical in both Upper and Lower Extremities Musculoskeletal: Positive: Normal, Strength/ROM Intact, Other - Tenderness to palpation in left lower calf. Pain elicited with dorsiflextion of left foot. Neurological: Positive: Normal, Sensory/Motor Intact, Alert, Oriented to Person Place, Time Diagnostics - Vital Signs Vital Signs Temp Pulse Resp BP Pulse Ox 06/05/18 05:52 98.3 F 66 18 204/92 98 - Laboratory Result Diagrams: 06/05/18 07:26 06/05/18 07:26 Lab Statement: Any lab studies that have been ordered have been reviewed, and results considered in the medical decision making process. Lower Extremity Course/Dx - Course Course Of Treatment: Pt presents with left calf pain that has been present for 1 week. She denies SOB, palpitations, and syncope. Her exam reveals swelling and tenderness to the area. Doppler U/S performed and was negative for blood clots. Pt has a history of lymphedema and uses support stockings as needed. She was informed there was no clot found in her leg and was advised to continue using the support stockings, use heat in the area, elevate leg, and follow up with her PCP as scheduled today. - Diagnoses Differential Diagnosis/HQI/PQRI: Positive: Cellulitis, DVT, Infection, Sprain, Strain Provider Diagnoses: Left leg pain, Leg swelling Discharge - Sign-Out/Discharge Documenting (check all that apply): Patient Departure Patient Received Moderate/Deep Sedation with Procedure: No - Discharge Plan Condition: Stable Disposition: HOME Patient Education Materials: Leg Edema (ED) Referrals: Kaylyn Silver MD [Primary Care Provider] - Additional Instructions: Please follow up with PCP today as scheduled Moist heat to the area may help If any symptoms worsen - return to the ED - Billing Disposition and Condition Condition: STABLE Disposition: Home
[2018-06-05 07:35] LABS: ABS Basophils 0.1 10^3/ul (0-0.2); ABS Eosinophils 0.2 10^3/ul (0-0.6); ABS Lymphocytes 2.1 10^3/ul (1.0-4.8); ABS Monocytes 0.8 10^3/ul (0-0.8); ABS Neutrophils 6.8 10^3/ul (1.5-7.7); ABS Nucleated RBC 0 10^3/ul; Eosinophil % 1.6 %; Hematocrit 45 % (33-41); Hemoglobin 15.1 g/dL (12.0-16.0); Lymphocyte % 21.5 %; Mean Corpuscular HGB Conc 34 g/dL (31-36); Mean Corpuscular Hemoglobin 32 pg (27-31); Mean Corpuscular Volume 94 fL (80-97); Mean Platelet Volume 7.2 fL (7.4-10.4); Nucleated Red Blood Cells % 0.1; Platelet Count 236 10^3/uL (150-450); Red Blood Count 4.76 10^6 /uL (3.70-4.87); Red Cell Distribution Width 14 % (10.5-15)
[2018-06-05 07:52] LABS: Albumin 4.3 g/dL (3.2-5.2); Albumin/Globulin Ratio 1.7 (1-3); BUN/Creatinine Ratio 15.5 (8-20); Calcium 9.5 mg/dL (8.6-10.3); EGFR African American 98.5 (>60); EGFR Non-African American 81.4 (>60); Globulin 2.6 g/dL (2-4); Potassium 3.5 mmol/L (3.5-5.0); Total Bilirubin 0.3 mg/dL (0.2-1.0); Total Protein 6.9 g/dL (6.4-8.9)
[2018-06-05 08:53] VITALS: BP 138/60
== END 2018-06-05 08:51 | disposition home or self-care (01) ==
LOC: ED 05:49
DX: M79.605 Pain in left leg (principal); M79.89 Other specified soft tissue disorders; F41.9 Anxiety disorder, unspecified; F43.10 Post-traumatic stress disorder, unspecified; F32.9 Major depressive disorder, single episode, unspecified; F17.210 Nicotine dependence, cigarettes, uncomplicated
CPT/HCPCS: 36415; 80053; 85025; 99282

== ENCOUNTER 2018-07-09 15:21 | Emergency (ER) | payer MEDICARE, BC ==
--- NOTE | 2018-07-09 15:31 | ED ---
Adult Trauma - HPI Summary HPI Summary: This patient is a 68 year old F brought in by ambulance to ED with a chief complaint of L wrist pain, L shoulder pain, R foot pain with swelling s/p fall around 1200. The patient was moving some stuff around in her apartment but then tripped over some objects on the floor. She fell through the doorway and hit her head on the steel door casing. The patient rates the pain 7/10 in severity. Symptoms aggravated by moving her foot or toes. Symptoms alleviated by nothing. Patient denies LOC, neck pain, and RUE pain. Previously, she had multiple falls and she felt weak due to just recently getting over mono and the flu. She had previously hurt her L writs and L shoulder and that has exacerbated today. - History of Current Complaint Chief Complaint: EDFall Stated Complaint: FALL PER EMS Hx Obtained From: Patient Hx Last Menstrual Period: post Mechanism of Injury: Fall Ambulatory at the Scene: Yes - with help Loss of Consciousness: no loss of consciousness Onset/Duration: Started Minutes Ago, Still Present Onset of Pain: Immediate Onset Severity: Moderate Current Severity: Moderate Pain Intensity: 7 Pain Scale Used: 0-10 Numeric Location: Radiates to: - L wrist, L shoulder, R foot Aggravating Factor(s): Movement, Ambulation Alleviating Factor(s): Nothing Associated Signs & Symptoms: Positive: Other: - denies LOC, neck pain, and RUE pain - Allergy/Home Medications Allergies/Adverse Reactions: Allergies Allergy/AdvReac Type Severity Reaction Status Date / Time amoxicillin Allergy YEAST Verified 06/05/18 05:57 INFECTION ampicillin Allergy THRUSH, Verified 06/05/18 05:57 YEAST INFECTIONS cephalexin [From Keflex] Allergy THRUSH, Verified 06/05/18 05:57 YEAST INFECTIONS BANDAID Allergy Rash Uncoded 06/05/18 05:57 ENVIRONMENTAL/SEASON Allergy CONGESTION, Uncoded 06/05/18 05:57 SNEEZING PMH/Surg Hx/FS Hx/Imm Hx Endocrine/Hematology History: Reports: Hx Thyroid Disease - HYPOTHYROIDISM Comment Only: Hx Diabetes - She is on metformin for diabetes? weight gain? Cardiovascular History: Reports: Hx Angina, Hx Hypertension, Other Cardiovascular Problems/Disorders - SEES [facility], BUT NOT ON REGULAR BASIS Denies: Hx Congestive Heart Failure, Hx Coronary Artery Disease, Hx Hypercholesterolemia, Hx Myocardial Infarction, Hx Pacemaker/ICD, Hx Valvular Heart Disease Respiratory History: Reports: Hx Asthma - HX OF ASTHMA - NO INHALER, Hx Chronic Obstructive Pulmonary Disease (COPD) - past smoker., Other Respiratory Problems/ Disorders - COPD Denies: Hx Lung Cancer GI History: Reports: Hx Gastroesophageal Reflux Disease - CONTROL WITH MEDS, Other GI Disorders - TAKING METFORMIN DUE TO THE DEPAKOTE AND WEIGHT GAIN History: Reports: Other Problems/Disorders - spastic bladder Denies: Hx Renal Disease Musculoskeletal History: Reports: Hx Arthritis, Hx Osteoporosis, Hx Tendonitis - CHRONIC IN MARA HANDS Sensory History: Reports: Hx Cataracts, Hx Contacts or Glasses - GLASSES, Hx Vision Problem - bifocals Denies: Hx Hearing Aid Opthamlomology History: Reports: Hx Cataracts, Hx Contacts or Glasses - GLASSES , Hx Vision Problem - bifocals Neurological History: Reports: Hx Migraine - ONCE A WEEK, Hx Nerve Disease - PARKINSON DISEASE, Other Neuro Impairments/Disorders - HX OF DIZZINESS R/T MEDICATIONS Denies: Hx Seizures Psychiatric History: Reports: Hx Anxiety - CONTROL WITH MEDS, Hx Post Traumatic Stress Disorder, Hx Bipolar Disorder Denies: Hx Panic Disorder Comment Only: Hx Depression - BIPOLAR - Cancer History Hx Chemotherapy: No Hx Radiation Therapy: No - Surgical History Surgery Procedure, Year, and Place: 2005 APPENDECTOMY, [facility] [place]. 2004 LAPAROSCOPIC CHOLECYSTECTOMY, [facility] [place]. 1973 D&C, WITH LAPAROSCOPIC TUBAL, [facility] [place]. 1966 LEFT BREAST TUMOR REMOVAL, [facility] [place]. CYSTOSCOPY, [facility] [place]. 2012 LEFT CATARACT EXTRACTION WITH IOL IMPLANT, [facility] [place]. COLONOSCOPY X 2, [facility] Hx Anesthesia Reactions: No Infectious Disease History: Reports: Hx Shingles Denies: Hx Clostridium Difficile, Hx Hepatitis, Hx Human Immunodeficiency Virus (HIV), Hx of Known/Suspected MRSA, Hx Tuberculosis, Hx Known/Suspected VRE , History Other Infectious Disease - Family History Known Family History: Positive: Cardiac Disease, Diabetes, Blood Disorder Negative: Renal Disease Family History: multiple disease but she is unsure of what at this time - Social History Alcohol Use: Rare Hx Substance Use: No Substance Use Type: Reports: None Hx Tobacco Use: Yes Smoking Status (MU): Heavy Every Day Tobacco Smoker Type: Cigarettes Amount Used/How Often: 1 PPD Length of Time of Smoking/Using Tobacco: 30 YEARS ON AND OFF Have You Smoked in the Last Year: No Review of Systems Positive: Other - L wrist pain, L shoulder pain, R foot pain with swelling; denies RUE pain and neck pain Neurological: Other - denies LOC All Other Systems Reviewed And Are Negative: Yes Physical Exam - Summary Physical Exam Summary: Appearance: Well-appearing, Well-nourished, lying in bed comfortably Skin: Warm, dry, no obvious rash Head: No external signs of head trauma. Eyes: sclera anicteric, no conjunctival pallor ENT: mucous membranes moist, pharynx appears normal Neck: Supple, nontender. No midline tenderness in the neck. Respiratory: Clear to auscultation, no signs of respiratory distress Cardiovascular: Normal S1, S2. No murmurs. Normal distal pulses in tibial and radial bilaterally. Abdomen: Soft, nontender, normal active bowel sounds present Musculoskeletal: L hand tenderness over the thenar eminence and no deformity. Left shoulder tenderness over point of the shoulder without deformity. R foot is tender over the distal metatarsals without external signs of trauma or deformity. Neurological: A&Ox3, awake and alert, mentation is normal, speech is fluent and appropriate Psychiatric: affect is normal, does not appear anxious or depressed Triage Information Reviewed: Yes Vital Signs On Initial Exam: Initial Vitals Temp Pulse Resp BP Pulse Ox 98.8 F 70 18 180/74 97 07/09/18 15:23 07/09/18 15:23 07/09/18 15:23 07/09/18 15:23 07/09/18 15:23 Vital Signs Reviewed: Yes Diagnostics - Laboratory Lab Statement: Any lab studies that have been ordered have been reviewed, and results considered in the medical decision making process. - Radiology R foot XR Radiology Interpretation Completed By: Radiologist Summary of Radiographic Findings: SOFT TISSUE SWELLING, NO FRACTURE IS SEEN. IF THE PATIENT'S SYMPTOMS PERSIST RECOMMEND FOLLOW-UP IMAGING. Dr. San has reviewed this radiology report. L hand XR Radiology Interpretation Completed By: Radiologist Summary of Radiographic Findings: NO EVIDENCE FOR FRACTURE. Dr. San has reviewed this radiology report. L shoulder XR Radiology Interpretation Completed By: Radiologist Summary of Radiographic Findings: NO EVIDENCE OF FRACTURE. Dr. San has reviewed this radiology report. Re-Evaluation - Re-Evaluation First Eval Re-Evaluation Time: 16:33 Comment: Discussed results of the XRs with the patient. Second Eval Re-Evaluation Time: 16:45 Comment: Tried to get the patient to ambulate. Adult Trauma Course/Dx - Course Assessment/Plan: This patient is a 68 year old F brought in by ambulance to ED with a chief complaint of L wrist pain, L shoulder pain, R foot pain with swelling s/p fall around 1200. R foot XR reveals SOFT TISSUE SWELLING, NO FRACTURE IS SEEN. IF THE PATIENT'S SYMPTOMS PERSIST RECOMMEND FOLLOW-UP IMAGING. L hand XR reveals NO EVIDENCE FOR FRACTURE. L shoulder XR reveals NO EVIDENCE OF FRACTURE. In the ED course, the patient was given Tylenol and Motrin for pain. This patient will be discharged with dx of sprain of the R foot. Patient understands and agrees with this plan. - Diagnoses Differential Diagnosis/HQI/PQRI: Positive: Sprain - right foot Provider Diagnoses: Sprain of right foot Discharge - Sign-Out/Discharge Documenting (check all that apply): Patient Departure - discharge Patient Received Moderate/Deep Sedation with Procedure: No - Discharge Plan Condition: Good Disposition: HOME Patient Education Materials: Foot Sprain (ED) Referrals: Kaylyn Silver MD [Primary Care Provider] - 3 Days (if not improving) Additional Instructions: Use the OTC pain killers like motrin, alleve and tylenol. You can take the tylenol with either of those. Ice can be very helpful with pain and keeping swelling down. Limit getting around over the next couple of days until it starts to heal. - Billing Disposition and Condition Condition: GOOD Disposition: Home - Attestation Statements Document Initiated by Josehp: Yes Documenting Scribe: Augusto Somers Provider For Whom Joseph is Documenting (Include Credential): Connor San MD Scribe Attestation: IAugusto, scribed for Connor San MD on 07/09/18 at 1832. Scribe Documentation Reviewed: Yes Provider Attestation: The documentation as recorded by the Augusto morrow accurately reflects the service I personally performed and the decisions made by me, Connor San MD Status of Scribe Document: Viewed
[2018-07-09] MEDS ORDERED: Acetaminophen TAB* 325 MG PO ONE (16:44)
[2018-07-09] MEDS ORDERED: Ibuprofen TAB* 600 MG PO ONE (16:44)
[2018-07-09 18:18] VITALS: BP 142/63
== END 2018-07-09 18:10 | disposition home or self-care (01) ==
LOC: ED 15:21
DX: S93.601A Unspecified sprain of right foot, initial encounter (principal); W18.09XA Striking against other object with subsequent fall, initial encounter; Y92.9 Unspecified place or not applicable; E03.9 Hypothyroidism, unspecified; I10 Essential (primary) hypertension; E11.9 Type 2 diabetes mellitus without complications; Z79.84 Long term (current) use of oral hypoglycemic drugs; Z88.0 Allergy status to penicillin; F17.210 Nicotine dependence, cigarettes, uncomplicated
CPT/HCPCS: 99282; A9270-GY

== ENCOUNTER 2019-04-22 06:58 | Day surgery (SDC) | payer MEDICARE, BC ==
[~2019-04-22 06:58] MED LIST: Buffered Lidocaine 1% SYRIN* 1 ML/SYRINGE INTRADERM ONE; Famotidine IV* 10 MG/ML 2 ML (20 mg) IV ONE; Lactated Ringers 1000 ML Bag* 1,000 ML IV SCH
[2019-04-22] MEDS ORDERED: Lidocaine 1% w EPI 1:200,000* SDV 30 ML VIAL ONE (07:07)
[2019-04-22] MEDS ORDERED: Buffered Lidocaine 1% SYRIN* 1 ML/SYRINGE INTRADERM ONE (07:19)
[2019-04-22] MEDS ORDERED: ceFAZolin 2 GM in NS PREMIX(*) 2 GM/100 ML BAG IVPB ONE (07:20)
[2019-04-22] MEDS ORDERED: Famotidine IV* 10 MG/ML 2 ML (20 mg) ONE (07:20)
[2019-04-22] MEDS ORDERED: Midazolam* 1 MG/ML 5 ML VIAL (5 MG) ONE (08:12)
[2019-04-22] MEDS ORDERED: Bupivacaine 0.5% W/EPI SDV* 30 ML VIAL ONE (08:32)
[2019-04-22] MEDS ORDERED: Lidocaine 1% MPF ** 5 ML VIAL ONE (08:38)
[2019-04-22] MEDS ORDERED: ROPIVACAINE 5 MG/ML 30 ML BTL (0.5%) ONE (08:38)
[2019-04-22] MEDS ORDERED: fentaNYL* 50 MCG/ML 2 ML VIAL (100 MCG VIAL) ONE (09:45)
[2019-04-22] MEDS ORDERED: Lidocaine 2% PF * 5 ML VIAL ONE (10:07)
[2019-04-22] MEDS ORDERED: DiMENhydriNATE IV* 50 MG/ML VIAL ONE (10:07)
[2019-04-22] MEDS ORDERED: Propofol* 10 MG/ML 20 ML BTL ONE (10:07)
[2019-04-22] MEDS ORDERED: Dexamethasone IV* 4 MG/ML 1 ML (4 MG) ONE (10:07)
[2019-04-22] MEDS ORDERED: Succinylcholine* 20 MG/ML 10 ML VIAL ONE (10:07)
[2019-04-22] MEDS ORDERED: Ondansetron INJ* 2 MG/ML VIAL ONE (10:07)
[2019-04-22] MEDS ORDERED: Ketorolac INJ* 30 MG/ML 1 ML VIAL ONE (10:07)
[2019-04-22] MEDS ORDERED: oxyCODONE TAB* 5 MG TAB PO PRN (11:28)
[2019-04-22] MEDS ORDERED: DiMENhydriNATE IV* 50 MG/ML VIAL IV PUSH PRN (11:28)
[2019-04-22] MEDS ORDERED: Naloxone* 0.4 MG/ML 1 ML VIAL IV PRN (11:28)
[2019-04-22] MEDS ORDERED: Acetaminophen TAB* 325 MG PO PRN (11:28)
[2019-04-22 15:23] VITALS: BP 132/65
--- NOTE | 2019-04-23 02:29 | OP ---
DATE OF OPERATION: 04/22/19 - [facility] DATE OF : 46 SURGEON: Scott Daley MD POLYSOMNOGRAPHER: BRAD Verdin ANESTHESIOLOGIST: Dr. Wan. ANESTHESIA: General plus peripheral nerve block. PRE-OP DIAGNOSES: 1. Left shoulder impingement syndrome with probable small supraspinatus tear of the rotator cuff. 2. Left shoulder bicipital tendonitis. 3. Left shoulder acromioclavicular degenerative joint disease. POST-OP DIAGNOSES: 1. Left shoulder impingement syndrome with probable small supraspinatus tear of the rotator cuff. 2. Left shoulder bicipital tendonitis. 3. Left shoulder acromioclavicular degenerative joint disease. 4. Left shoulder superior labrum anterior and posterior tear. OPERATIVE PROCEDURE: 1. Left shoulder arthroscopic glenohumeral debridement. 2. Left shoulder arthroscopic decompression with subacromial bursectomy and arthroscopic acromioplasty. 3. Left shoulder mini open rotator cuff repair with debridement of humeral head bone cyst. 4. Left shoulder biceps tenodesis. 5. Left shoulder distal clavicle excision. INDICATIONS: Ms. Ignacio is 69 years old. She has the shoulder pain. It has been refractory to nonoperative treatment. She had difficulty using the arm out in space. The shoulder pain is such that she wishes to proceed with surgery. She understands the risk of failure of the surgery including persistent pain, failure of the rotator cuff repair, or other issues. She does wish to proceed. ESTIMATED BLOOD LOSS: 2 mL. COMPLICATIONS: None. FINDINGS: See above and below. DESCRIPTION OF PROCEDURE: Ms. Ignacio was seen in the preoperative holding area. The correct side, site, and procedure were identified. She had a nerve block performed and then we came back to the operating room. Anesthesia was induced. She was positioned in the beach chair position with all the bony prominences and nerves well padded. The head was secured in the appropriate location. The arm was then pre-scrubbed and prepped and draped in the usual fashion. I first developed a standard posterior arthroscopic portal in the typical location, utilizing the 11 blade followed by the obturator, and then the camera was introduced in the posterior portal. I then developed an anterior portal through the rotator interval using the outside-in technique. Once I had a cannula placed in the anterior portal, I went ahead and introduced the radiofrequency ablator and started the debridement. A large peeled off SLAP tear was noted. That was all debrided back. The biceps tendon was released with the straight biter. The rotator cuff was examined. She definitely had a high-grade tear near the anterior aspect of the insertion of the supraspinatus tendon. More posteriorly, it looked better. I went ahead and completed the debridement inside the glenohumeral joint and I did note minor articular cartilage wear consistent with her age. I then placed the trocar in the subacromial space and made a standard lateral portal. I used the radiofrequency ablator and the shaver to perform a subacromial bursectomy. The coracoacromial ligament was preserved. I used the zainab to perform an acromioplasty in a standard fashion, removing about 3 mm of acromion. Once I completed the acromioplasty, I did again note the anterior degeneration, very high grade, pretty much near complete tear in the anterior supraspinatus tendon. I went ahead and at this point withdrew out the arthroscopic equipment. I made a longitudinal incision, incorporating my lateral portals. This was just off the anterior aspect of the acromion. I released the deltoid fascia. I longitudinally bluntly split the fibers of the deltoid muscle and placed a Kolbel retractor in the subdeltoid recess. This provided excellent visualization. The rotator cuff tear was noted anteriorly. There was a large bone cyst adjacent to this. That was curetted out. Once I had mobilized the tear, I placed 1 Arthrex Corkscrew anchor proximally near the proximal aspect of the rotator cuff footprint. I then passed the suture tape associated with this and then brought this back down to a lateral SwiveLock anchor. First anchor was placed too close to the bone cyst and so pulled out and so I went ahead and converted to a little bit more lateral and placed second SwiveLock anchor and then had excellent purchase and held the the FiberTape down nicely. I used one of the 2-0 FiberWire sutures off that anchor to augment it with just little bit of additional repair on the anterior most supraspinatus tendon. Once I completed the rotator cuff tear repair, I went ahead and turned my attention to the biceps tendon. The biceps tendon was palpable just adjacent to the anterior supraspinatus tendon. I went ahead and retrieved the tendon there. I then placed one SwiveLock anchor in the proximal aspect of the bicipital groove. I then used an onlay technique to sew the tendon down to the bone. I did this utilizing the #2 FiberWire off the suture anchor as well as free needle. There was excellent [id number] apposition. Everything was very secure. I had set the tension in appropriate tension. With the biceps tenodesis done and the rotator cuff repair done, I irrigated out the wound. The deltoid fascia was closed with 2-0 Vicryl suture. Skin was closed in all the incisions with 4-0 nylon suture. Lastly, I made a 3 cm longitudinal incision over the acromioclavicular joint superiorly. Full thickness flaps were raised off the superior acromioclavicular ligaments. These were then incised longitudinally and soft tissue was released about the distal clavicle. Baby Hohmann retractors were placed on the anterior and posterior aspects of the clavicle. The sagittal saw was used to excise the distal 1 cm of the clavicle. Bone wax was placed on the cancellous portion of the bone. The wound was irrigated out. Superior acromioclavicular ligaments were repaired with 2-0 Vicryl suture. Skin was closed with 4-0 nylon suture. The wounds were dressed with Xeroform, 4x4s, ABDs , and foam tape. Cryotherapy unit was applied. She was placed in abduction sling and taken to the recovery room in stable condition. [id number]/[facility] #: [id number] JAMES
== END 2019-04-22 14:30 | disposition home or self-care (01) ==
LOC: OR 06:58
PROVIDERS: ATTEND Orthopaedic Surgery Hand Surgery
DX: S46.012A Strain of muscle(s) and tendon(s) of the rotator cuff of left shoulder, initial encounter (principal); S43.432A Superior glenoid labrum lesion of left shoulder, initial encounter; M75.42 Impingement syndrome of left shoulder; M75.22 Bicipital tendinitis, left shoulder; M19.012 Primary osteoarthritis, left shoulder; G89.18 Other acute postprocedural pain; X58.XXXA Exposure to other specified factors, initial encounter; Y92.9 Unspecified place or not applicable; I10 Essential (primary) hypertension; J44.9 Chronic obstructive pulmonary disease, unspecified; E78.5 Hyperlipidemia, unspecified; M19.90 Unspecified osteoarthritis, unspecified site; K21.9 Gastro-esophageal reflux disease without esophagitis; E03.9 Hypothyroidism, unspecified; G20 Parkinson's disease; F41.8 Other specified anxiety disorders; F31.9 Bipolar disorder, unspecified
CPT/HCPCS: C1713; J0330; J0690; J1100; J1240; J1885; J2001; J2250; J2405; J2704; J2795; J3010